=== PATIENT | female | born 1955 | race Caucasian/White ===

== ENCOUNTER 2019-04-05 11:58 | Outpatient (CLI) | payer MEDICARE, SELFPAY ==
--- NOTE | ~2019-04-05 | XR_ITS ---
EXAMINATION: XR chest 2V EXAM DATE: 04/05/2019 12:25 INDICATION: Shortness of breath. TECHNIQUE: Frontal and lateral projections of the chest obtained and reviewed. Comparison is made to prior examination from 09/30/2016. FINDINGS: The lungs are clear. There are no pleural effusions. The cardiomediastinal silhouette is within normal limits. There is no pneumothorax suspected. The bones and soft tissues are unremarkab le. IMPRESSION: No acute cardiopulmonary findings. Reviewed, dictated and finalized at location B. MOTIVE SERVICE CONSULTANT
== END 2019-04-05 11:59 | disposition home or self-care (01) ==
PROVIDERS: PCP Nurse Practitioner Family; Visit Provider Nurse Practitioner Family
DX: R30.0 Dysuria (principal); R06.02 Shortness of breath
CPT/HCPCS: 71046; 87077; 87086; 87088; 87186

== ENCOUNTER 2019-04-25 14:13 | Outpatient (CLI) | payer MEDICARE, SELFPAY | END 2019-04-25 14:14 | disposition home or self-care (01) | PROVIDERS: PCP Family Medicine | DX: N39.0 Urinary tract infection, site not specified (principal) | CPT/HCPCS: 87077; 87086; 87088; 87186 ==

== ENCOUNTER 2019-06-17 13:28 | Outpatient (CLI) | payer MEDICARE, SELFPAY ==
[2019-06-17 13:40] LABS: Hematocrit 44.1 % (35.0-49.0); Hemoglobin 14.4 g/dL (12.0-15.0); Mean Corpuscular HGB Conc 32.7 g/dL (32.0-36.0); Mean Corpuscular Hemoglobin 30.1 pg (27.0-31.0); Mean Corpuscular Volume 92.1 fL (78.0-102.0); Mean Platelet Volume 8.8 fl (9.2-11.8); Platelet Count Result 255 K/mm3 (150-420); Red Blood Count 4.79 M/mm3 (4.20-5.40); Red Cell Distribution Width 11.7 % (11.6-14.4); White Blood Count 7.8 K/mm3 (4.8-10.8)
[2019-06-17 14:20] LABS: Alanine Aminotransferase 32 U/L (14-59); Albumin Level 3.7 g/dL (3.4-5.0); Alkaline Phosphatase 78 U/L (46-116); Anion Gap 14.2 mmol/L (7-16); Aspartate Amino Transferase 27 U/L (15-37); Bilirubin,Total 0.4 mg/dL (0.00-1.00); Blood Urea Nitrogen 16 mg/dL (7-18); Calcium 8.7 mg/dL (8.5-10.1); Carbon Dioxide 28 mmol/L (21-32); Chloride 106 mmol/L (98-108); Estimated Glomerular Filt Rate > 60; Glucose 123 mg/dL (70-99); Osmolality Calculated 300 mOsm/kg (285-295); Potassium 4.2 mmol/L (3.5-5.1); Sodium 144 mmol/L (136-145); Total Protein 7.1 g/dL (6.4-8.2)
[2019-06-17 14:28] LABS: CRP < 0.2 mg/dL (0.0-0.9)
== END 2019-06-17 13:29 | disposition home or self-care (01) ==
PROVIDERS: PCP Family Medicine
DX: K50.919 Crohn's disease, unspecified, with unspecified complications (principal)
CPT/HCPCS: 36415; 80053; 85027; 86140

== ENCOUNTER 2019-07-06 12:45 | Outpatient (CLI) | payer MEDICARE, SELFPAY ==
[2019-07-06 12:56] LABS: Add Urine Microscopic? YES; Appearance Urine Clear (Clear); Bilirubin Urine Negative (Negative); Blood Urine Negative (Negative); Color Urine Orange (Yellow); Glucose Urine UA Trace (Negative); Ketones Urine Negative (Negative); Leukocyte Esterase Ur Trace (Negative); Nitrate Urine Positive (Negative); Protein Urine 1+ (Negative); Specific Grav Ur 1.025 (1.010-1.020); pH Urine 5.5 (5.0-8.0)
[2019-07-06 13:02] LABS: Bacteria Urine 2+ /hpf; RBC Urine 0-2 /hpf (0-2); Squamous Epithelial Cell Urine Moderate /hpf (Few)
== END 2019-07-06 12:46 | disposition home or self-care (01) ==
LOC: CHSLAB 12:47
PROVIDERS: PCP Family Medicine; Visit Provider Nurse Practitioner Family
DX: R35.0 Frequency of micturition (principal); R30.0 Dysuria
CPT/HCPCS: 81001; 87086; 87088; 87147; 87186

== ENCOUNTER 2019-09-08 12:52 | Outpatient (CLI) | payer MEDICARE, SELFPAY ==
--- NOTE | ~2019-09-08 | MM_ITS ---
EXAMINATION: MM screening kashif BI w ziyad HISTORY: Screening mammogram TECHNIQUE: Craniocaudal and mediolateral oblique 3-D tomosynthesis images were obtained and synthetic 2-D images were generated. CAD analysis was submitted and interpreted. COMPARISON: 06/28/2018, 03/13/2016, 12/07/2013 bilateral digital screening mammogram examinations BREAST PARENCHYMAL COMPOSITION: The breasts are almost entirely fatty.. FINDINGS: There is no evidence of suspicious mass, calcification, or architectural distortion to sugg est malignancy in either breast. There has been no suspicious interval change. IMPRESSION: 1. No mammographic evidence of malignancy. 2. Recommend routine screening mammography in one year. BI-RADS Category 1: Negative Reviewed, dictated and finalized at location A.
== END 2019-09-08 12:53 | disposition home or self-care (01) ==
LOC: CHSIMG 12:54
PROVIDERS: PCP Family Medicine; Visit Provider Family Medicine
DX: Z12.31 Encounter for screening mammogram for malignant neoplasm of breast (principal)
CPT/HCPCS: 77063; 77067

== ENCOUNTER 2019-10-31 14:39 | Outpatient (NON) | payer MEDICARE, SELFPAY ==
[2019-10-31 15:00] LABS: Add Urine Microscopic? YES; Appearance Urine Clear (Clear); Bilirubin Urine 1+ (Negative); Blood Urine Negative (Negative); Color Urine Orange (Yellow); Glucose Urine UA 1+ (Negative); Ketones Urine 1+ (Negative); Leukocyte Esterase Ur 1+ LEU/UL (Negative); Nitrate Urine Positive (Negative); Protein Urine 2+ (Negative); Urobilinogen Urine >=8.0 mg/dL (0.2-1.0)
[2019-10-31 15:07] LABS: Bacteria Urine Trace /hpf; RBC Urine 0-2 /hpf (0-2); Squamous Epithelial Cell Urine Few /hpf (Few); WBC Urine 31-50 /hpf (0-3)
== END 2019-10-31 14:40 ==
LOC: CHSLAB 14:40
PROVIDERS: Visit Provider Nurse Practitioner Family
DX: R35.0 Frequency of micturition (principal)
CPT/HCPCS: 81001; 87086; 87088

== ENCOUNTER 2020-02-27 12:22 | Outpatient (CLI) | payer MEDICARE, SELFPAY ==
--- NOTE | ~2020-02-27 | CT_ITS ---
EXAMINATION: CT abdomen pelvis wo con DATE: 02/27/2020 12:44 INDICATION: Chronic cystitis TECHNIQUE: Computed tomography (CT) of the abdomen and pelvis was performed without intravenous contr ast. Automated exposure control and iterative reconstruction technique were employed. The dose-length product was 1423.35 mGy-cm. COMPARISON: 05/21/2015 FINDINGS: Lung bases are clear. Heart size is normal. No pericardial or pleural effusion. Liver, gallbladder, s pleen, pancreas, bilateral adrenal glands and right kidney are normal. New 2.8 x 2.4 x 2.7 cm soft ti ssue density mass at the left renal hilum. Anastomotic suture line along the small bowel may right lo wer quadrant. No bowel obstruction. Appendix is normal. There are few surgical clips along the course of the right ureter. The right ureterovesicular junction appears to be retracted cephalad suggesting prior distal ureterectomy and reimplantation, possibly with psoas hitch procedure. The uterus and bi lateral adnexa are unremarkable. No free intraperitoneal gas or fluid. No pathologically enlarged abd ominal or pelvic lymphadenopathy.. There is calcified atherosclerosis of the aorta and many of the ot her arteries. Multiple chronic appearing compression fractures in the lumbar and lower thoracic spine . Mild to moderate degenerative skeletal changes in the spine and at both hips. IMPRESSION: 1. 2.8 cm soft tissue density mass at the left renal hilum new since 05/21/2015 could represent either malignancy or a proteinaceous/hemorrhagic cyst. Recommend pre and postcontrast MRI or CT for more de finitive determination. Line 2. Postoperative changes along the distal right ureter and cephalad retraction of the ureterovesicula r junction suggesting prior distal ureterectomy and reimplantation with possible psoas hitch procedur e. Correlate with urologic history. Reviewed, dictated and finalized at location A. K OF COURT IMPRESSION: 1. 2.8 cm soft tissue density mass at the left renal hilum new since 05/21/2015 could represent either malignancy or a proteinaceous/hemorrhagic cyst. Recommen d pre and postcontrast MRI or CT for more definitive determination. Line 2. Postoperative changes along the distal right ureter and cephalad retraction of the ureterovesicular junction suggesting prior distal ureterectomy and reimp lantation with possible psoas hitch procedure. Correlate with urologic history.
== END 2020-02-27 12:23 | disposition home or self-care (01) ==
PROVIDERS: PCP Family Medicine; Visit Provider Urology
DX: N30.20 Other chronic cystitis without hematuria (principal)
CPT/HCPCS: 74176

== ENCOUNTER → 2020-03-30 14:30 | Outpatient (CLI) | payer MEDICARE, SELFPAY ==
--- NOTE | ~2020-03-30 | MR_ITS ---
EXAMINATION: MR abdomen wo/w con INDICATION: Left kidney mass TECHNIQUE: Coronal SSFSE ARC, WATER:coronal LAVA-FLEX, Coronal 2D FIESTA FatSat, Axial SSFSE BH ARC, Axial 3D DualEcho BH, Axial SSFSE-IR, Axial DWI b=500, Axial 2D FIESTA FatSat, pre and dynamic postco ntrast Axial LAVA ARC, postcontrast Coronal In and Opposed phase LAVA FLEX COMPARISON: CT, 02/27/2020 CONTRAST: Multihance, 20 cc FINDINGS: There is a 3.0 cm mass with heterogeneous T1 and T2 signal intensity arising from the lower pole of the left kidney and encroaching on the left renal pelvis. The mass demonstrates heterogeneou s enhancement after contrast administration. The left renal vein is patent. There is a 10 mm simple c yst of the left kidney upper pole. Tiny cysts of the right kidney measure up to 3 mm. There are no pa thologically enlarged abdominal lymph nodes. The liver, spleen, pancreas, gallbladder, and adrenal gl ands are normal. There are no dilated loops of bowel. Multiple chronic compression fractures are note d in the lower thoracic and lumbar spine. IMPRESSION: 1. Mass of the left kidney lower pole encroaching on the left renal pelvis, consistent with renal ligia l carcinoma. Reviewed, dictated and finalized at location A. ADMINISTRATOR IMPRESSION: 1. Mass of the left kidney lower pole encroaching on the left renal pelvis, con sistent with renal cell carcinoma.
[2020-03-30 15:01] LABS: Estimated Glomerular Filt Rate > 60
== END ==
PROVIDERS: PCP Family Medicine; Visit Provider Urology
DX: N28.89 Other specified disorders of kidney and ureter (principal)
CPT/HCPCS: 74183; A9577

== ENCOUNTER → 2020-05-25 11:56 | Outpatient (CLI) | payer MEDICARE, SELFPAY ==
--- NOTE | ~2020-05-25 | MR_ITS ---
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 Urinary tract infections. TECHNIQUE: Magnetic resonance imaging (MRI) of the pelvis was performed without and with 20 mL MultiH ance intravenous contrast. Sequences included coronal and axial T2-weighted FS FSE, axial T1-weighted FS FSE, axial LAVA, coronal FS FIESTA, coronal LAVA-flex, axial T2-weighted FSE, axial dual-echo T1- weighted FSPGR, axial FS FIESTA, axial DWI, and small [id number] sagittal, coronal, and axial T2-w eighted FSE. Postcontrast sequences included coronal LAVA-flex and a time course of axial LAVA. COMPARISON: CT abdomen and pelvis 02/27/2020, 05/21/15, abdomen MRI 03/30/2020 FINDINGS: Partially visualized is a 3.2 cm mass in the left renal pelvis that was enhancing on the prior MRI. T here are no dilated loops of bowel. The appendix is normal. There is a diverticulum of the right supe rior aspect of the bladder, which may be the site of a reimplanted ureter. There is no colovesical fi stula. There are no pathologically enlarged lymph nodes. There is no free intraperitoneal fluid. IMPRESSION: 1. No colovesical fistula. 2. Diverticulum of the right superior aspect of the bladder, which may be the site of a reimplanted u reter. 3. Left kidney mass again seen, consistent with renal cell carcinoma. Reviewed, dictated and finalized at location A. IMPRESSION: 1. No colovesical fistula. 2. Diverticulum of the right superior aspect of the bladder, which may be the s ite of a reimplanted ureter. 3. Left kidney mass again seen, consistent with renal cell carcinoma.
[2020-05-25 12:49] LABS: Estimated Glomerular Filt Rate > 60
== END ==
DX: K50.113 Crohn's disease of large intestine with fistula (principal); N32.3 Diverticulum of bladder
CPT/HCPCS: 72197; A9577

== ENCOUNTER 2020-06-19 11:59 | Outpatient (CLI) | payer MEDICARE, SELFPAY | END 2020-06-19 12:00 | disposition home or self-care (01) | LOC: CHSLAB 12:03 | PROVIDERS: PCP Family Medicine | DX: N39.0 Urinary tract infection, site not specified (principal) | CPT/HCPCS: 87077; 87086; 87088; 87186 ==

== ENCOUNTER 2020-07-05 15:03 | Outpatient (CLI) | payer MEDICARE, SELFPAY | END 2020-07-05 15:04 | disposition home or self-care (01) | LOC: CHSLAB 15:06 | PROVIDERS: PCP Family Medicine | DX: N39.0 Urinary tract infection, site not specified (principal) | CPT/HCPCS: 87077; 87086; 87088; 87186 ==

== ENCOUNTER 2022-01-16 13:15 | Outpatient (CLI) | payer MEDICARE, SELFPAY ==
[2022-01-16 13:29] LABS: Hemoglobin 12.5 g/dL (12.0-15.0); Mean Corpuscular HGB Conc 32.1 g/dL (32.0-36.0); Mean Corpuscular Hemoglobin 30.7 pg (27.0-31.0); Mean Corpuscular Volume 95.8 fL (78.0-102.0); Mean Platelet Volume 8.9 fl (9.2-11.8); Platelet Count Result 234 K/mm3 (150-420); Red Blood Count 4.07 M/mm3 (4.20-5.40); Red Cell Distribution Width 11.9 % (11.6-14.4); White Blood Count 6.3 K/mm3 (4.8-10.8)
[2022-01-16 13:31] LABS: Appearance Urine Clear (Clear); Bilirubin Urine 1+ (Negative); Blood Urine Negative (Negative); Glucose Urine UA Trace (Negative); Ketones Urine Trace (Negative); Leukocyte Esterase Ur 2+ (Negative); Nitrate Urine Positive (Negative); Protein Urine 2+ (Negative)
[2022-01-16 13:36] LABS: Add Urine Microscopic? YES; Bacteria Urine Trace /hpf; Color Urine Dark Orange (Yellow); RBC Urine None seen /hpf (0-2); Squamous Epithelial Cell Urine Few /hpf (Few)
[2022-01-16 13:42] LABS: Creatinine Urine 162.45 mg/dL (40-278); MALB Creatinine Ratio 13.9 mg/g (0-30); Microalbumin Urine Random 22.6 mg/L
[2022-01-16 13:57] LABS: Alanine Aminotransferase 23 U/L (14-59); Albumin Level 3.8 g/dL (3.4-5.0); Alkaline Phosphatase 57 U/L (46-116); Anion Gap 10 mmol/L (8-16); Aspartate Amino Transferase 17 U/L (15-37); Bilirubin,Total 0.5 mg/dL (0.00-1.00); Blood Urea Nitrogen 25 mg/dL (7-18); Carbon Dioxide 24 mmol/L (21-32); Chloride 106 mmol/L (98-108); Estimated Glomerular Filt Rate 32; Glucose 113 mg/dL (70-99); NT Pro B Type Natriuretic Pept 382 pg/mL (0-125); Osmolality Calculated 295 mOsm/kg (285-295); Potassium 5.5 mmol/L (3.5-5.1); Sodium 140 mmol/L (136-145); Total Protein 7.2 g/dL (6.4-8.2)
== END 2022-01-16 13:16 | disposition home or self-care (01) ==
LOC: CHSLAB 13:16
PROVIDERS: PCP Family Medicine; Visit Provider Family Medicine
DX: R30.0 Dysuria (principal); E11.9 Type 2 diabetes mellitus without complications; I10 Essential (primary) hypertension; R06.09 Other forms of dyspnea
CPT/HCPCS: 36415; 80053; 81001; 82043; 83880; 85027

== ENCOUNTER 2022-01-24 14:31 | Outpatient (CLI) | payer MEDICARE, SELFPAY ==
--- NOTE | 2022-01-24 14:35 | ECHO_ITS ---
Patient Info Name: Za De Los Santos Age: 66 years : 1955 Gender: Female Ht: 63 in Wt: 280 lbs BSA: 2.46 m2 HR: 78 bpm BP: 158 / 68 mmHg Heart Rhythm: Sinus Rhythm Technical Quality: Fair Exam Date: 01/24/2022 3:23 PM Exam Location: [facility] Patient Status: Outpatient Admit Date: 01/24/2022 Staff Ordering Physician: Benny Lopez DO Sheet Metal Duct Worker Supervisor: Priyanka Theodore RDCS Attending Provider: Benny Lopze DO Referring Physician: Jessica COOL; Exam Type: CA echo doppler color flow Study Info Indications I27.0 - Primary pulmonary hypertension Complete two-dimensional, color flow and Doppler transthoracic echocardiogram is performed. Summary 1. Complete two-dimensional, color flow and Doppler transthoracic echocardiogram is performed. 2. Left ventricular chamber dimension is normal. 3. Left ventricular systolic function is normal, estimated at 60-65%. 4. The left ventricular diastolic function is grade I diastolic dysfunction. 5. E/e' 9 is minimally elevated. 6. No pulmonary hypertension, estimated pulmonary arterial systolic pressure is 30 mmHg. Left Ventricle E/e' 9 is minimally elevated. Left ventricular chamber dimension is normal. Left ventricular systolic function is normal, estimated at 60-65%. The left ventricular diastolic function is grade I diastolic dysfunction. Right Ventricle Right ventricular systolic function is normal and with normal TAPSE 2.4 cm. Right ventricular chamber dimension is normal. Left Atria Left atrial chamber dimension is normal. Right Atria Right atrial chamber dimension is normal. Aortic Valve The aortic valve is trileaflet. There is no aortic valve stenosis. There is no aortic valve regurgitation. Pulmonic Valve There is no pulmonic regurgitation. Mitral Valve There is no mitral valve regurgitation. Tricuspid Valve There is no tricuspid valve regurgitation. No pulmonary hypertension, estimated pulmonary arterial systolic pressure is 30 mmHg. Pericardium/Pleural There is no pericardial effusion. Inferior Vena Cava Normal inferior vena cava with >50% collapse upon inspiration consistent with normal right atrial pressure, 5 mmHg. Aorta The aortic root size at the sinus of Valsalva is normal. Left Ventricular Outflow Tract Name Value Normal LVOT 2D LVOT Diameter 2.0 cm LVOT Doppler LVOT Peak Velocity 137 cm/s LVOT Peak Gradient 8 mmHg LVOT Mean Gradient 4 mmHg LVOT VTI 27 cm LVOT VTI/AV VTI Ratio 0.8 LVOT Stroke Volume 83 ml Pulmonic Valve Name Value Normal RVOT Doppler RVOT Peak Gradient 2 mmHg PV Doppler
== END 2022-01-24 14:32 | disposition home or self-care (01) ==
LOC: CHSIMG 14:32
PROVIDERS: PCP Family Medicine; Visit Provider Family Medicine
DX: I11.0 Hypertensive heart disease with heart failure (principal); I50.30 Unspecified diastolic (congestive) heart failure
CPT/HCPCS: 93306

== ENCOUNTER 2022-03-18 14:18 | Outpatient (CLI) | payer MEDICARE, SELFPAY ==
[2022-03-18 14:43] LABS: Basophils Absolute Auto 0.07 K/mm3 (0.00-0.10); Eosinophils Absolute Auto 0.33 K/mm3 (0.02-0.50); Eosinophils Percent Auto 4.9 % (1.0-6.0); Hematocrit 41.9 % (35.0-49.0); Immature Granulocyte Absolute 0.01 K/mm3 (0.00-0.00); Immature Granulocyte Percent A 0.1 % (0.0-0.0); Lymphocytes Absolute Auto 2.49 K/mm3 (1.10-4.50); Lymphocytes Percent Auto 36.8 % (18.0-42.0); Mean Corpuscular HGB Conc 33.4 g/dL (32.0-36.0); Mean Corpuscular Volume 92.7 fL (78.0-102.0); Mean Platelet Volume 8.9 fl (9.2-11.8); Monocytes Percent Auto 8.9 % (2.0-11.0); Neutrophils Absolute Auto 3.3 K/mm3 (1.7-7.2); Neutrophils Percent Auto 48.3 % (50.0-70.0); Platelet Count Result 240 K/mm3 (150-420); Red Blood Count 4.52 M/mm3 (4.20-5.40); Red Cell Distribution Width 11.6 % (11.6-14.4); White Blood Count 6.8 K/mm3 (4.8-10.8)
[2022-03-18 14:47] LABS: Appearance Urine Clear (Clear); Bilirubin Urine Negative (Negative); Color Urine Light Yellow (Yellow); Glucose Urine UA Negative (Negative); Ketones Urine Negative (Negative); Leukocyte Esterase Ur 1+ LEU/UL (Negative); Nitrate Urine Negative (Negative); Protein Urine Negative (Negative); Urobilinogen Urine 0.2 mg/dL (0.2-1.0)
[2022-03-18 14:49] LABS: Add Urine Microscopic? YES; Blood Urine Trace-lysed (Negative); RBC Urine 0-2 /hpf (0-2); Squamous Epithelial Cell Urine Few /hpf (Few)
[2022-03-18 14:50] LABS: Bacteria Urine 1+ /hpf
[2022-03-18 14:52] LABS: Creatinine Urine 74.29 mg/dL (40-278); Total Protein Urine Random 17.4 mg/dL (0.0-11.9); Ur Ttl Prot Creatinine Ratio 0.23 mg/mg (0-0.20)
[2022-03-18 15:33] LABS: Albumin Level 3.7 g/dL (3.4-5.0); Anion Gap 5 mmol/L (8-16); Blood Urea Nitrogen 16 mg/dL (7-18); Calcium 8.9 mg/dL (8.5-10.1); Carbon Dioxide 30 mmol/L (21-32); Chloride 106 mmol/L (98-108); Estimated Glomerular Filt Rate 48; Ferritin 90 ng/mL (8-252); Glucose 120 mg/dL (70-99); Iron 100 ug/dL (50-170); Osmolality Calculated 294 mOsm/kg (285-295); Percent Iron Saturation 26 % (12-57); Phosphorus 3.2 mg/dL (2.6-4.7); Potassium 4.5 mmol/L (3.5-5.1); Sodium 141 mmol/L (136-145)
[2022-03-22 21:39] LABS: Parathyroid Intact 96 pg/mL (14-64)
[2022-03-24 01:06] LABS: Vitamin D 25 Hydroxy 42 ng/mL (30-100)
== END 2022-03-18 14:19 | disposition home or self-care (01) ==
LOC: CHSLAB 14:24
PROVIDERS: PCP Family Medicine
DX: N18.32 Chronic kidney disease, stage 3b (principal); C64.2 Malignant neoplasm of left kidney, except renal pelvis; D63.1 Anemia in chronic kidney disease; N25.0 Renal osteodystrophy; I10 Essential (primary) hypertension; R82.90 Unspecified abnormal findings in urine
CPT/HCPCS: 36415; 80069; 81001; 82306; 82570; 82728; 83540; 83550; 83970; 84156; 85025; 87077; 87086; 87088; 87186

== ENCOUNTER 2022-05-29 15:19 | Outpatient (CLI) | payer MEDICARE, SELFPAY ==
[2022-05-29 15:34] LABS: Appearance Urine Clear (Clear); Bilirubin Urine Negative (Negative); Blood Urine Negative (Negative); Glucose Urine UA Trace (Negative); Ketones Urine Negative (Negative); Leukocyte Esterase Ur 1+ LEU/UL (Negative); Nitrate Urine Positive (Negative); Protein Urine Trace (Negative); Specific Grav Ur 1.025 (1.010-1.020)
[2022-05-29 15:56] LABS: Add Urine Microscopic? YES; Color Urine Dark Orange (Yellow); Squamous Epithelial Cell Urine Moderate /hpf (Few); WBC Urine 21-30 /hpf (0-3)
[2022-05-29 15:57] LABS: Bacteria Urine 4+ /hpf
== END 2022-05-29 15:20 | disposition home or self-care (01) ==
PROVIDERS: PCP Family Medicine; Visit Provider Family Medicine
DX: R30.0 Dysuria (principal); R82.90 Unspecified abnormal findings in urine
CPT/HCPCS: 81001; 87077; 87086; 87088; 87186

== ENCOUNTER 2022-07-15 15:11 | Outpatient (CLI) | payer MEDICARE, SELFPAY ==
[2022-07-15 15:24] LABS: Bilirubin Urine Negative (Negative); Blood Urine Negative (Negative); Glucose Urine UA Trace (Negative); Ketones Urine Negative (Negative); Leukocyte Esterase Ur 2+ LEU/UL (Negative); Nitrate Urine Positive (Negative); Protein Urine 1+ (Negative)
[2022-07-15 15:33] LABS: Color Urine Dark Orange (Yellow)
[2022-07-15 15:37] LABS: Add Urine Microscopic? YES; Appearance Urine Slightly Cloudy (Clear); Bacteria Urine 1+ /hpf; RBC Urine None seen /hpf (0-2); Squamous Epithelial Cell Urine Few /hpf (Few); WBC Urine 51-75 /hpf (0-3)
== END 2022-07-15 15:12 | disposition home or self-care (01) ==
LOC: CHSLAB 15:13
PROVIDERS: PCP Family Medicine; Visit Provider Family Medicine
DX: R39.9 Unspecified symptoms and signs involving the genitourinary system (principal); R82.90 Unspecified abnormal findings in urine
CPT/HCPCS: 81001; 87086; 87088

== ENCOUNTER 2022-07-31 12:36 | Outpatient (CLI) | payer MEDICARE, SELFPAY ==
--- NOTE | ~2022-07-31 | XR_ITS ---
Clinical Indication: Dyspnea PA and lateral views of the chest: Comparison: 04/05/2019 Findings: The lungs are clear, without evidence of focal consolidation or pleural effusion. Cardiome diastinal silhouette is within normal limits. Mild compression deformities of T12 and L1 are similar to prior exam. Impression: Clear lungs. Stable compression deformities, as above. Reviewed, dictated and finalized at location . Impression: Clear lungs. Stable compression deformities, as above.
--- NOTE | ~2022-07-31 | MM_ITS ---
EXAMINATION: MM screening kashif BI w ziyad HISTORY: Screening mammogram TECHNIQUE: Craniocaudal and mediolateral oblique 3-D tomosynthesis images were obtained and synthetic 2-D images were generated. CAD analysis was submitted and interpreted. COMPARISON: 09/08/2019, 06/28/2018, 03/13/2016 bilateral screening mammogram examinations BREAST PARENCHYMAL COMPOSITION: The breasts are almost entirely fatty. FINDINGS: There is no evidence of suspicious mass, calcification, or architectural distortion to sugg est malignancy in either breast. There has been no suspicious interval change. IMPRESSION: 1. No mammographic evidence of malignancy. 2. Recommend routine screening mammography in one year. BI-RADS Category 1: Negative Reviewed, dictated and finalized at location A.
== END 2022-07-31 12:37 | disposition home or self-care (01) ==
LOC: CHSIMG 12:37
PROVIDERS: PCP Family Medicine; Visit Provider Family Medicine
DX: Z12.31 Encounter for screening mammogram for malignant neoplasm of breast (principal); R06.00 Dyspnea, unspecified
CPT/HCPCS: 71046; 77063; 77067

== ENCOUNTER 2022-08-06 10:11 | Outpatient (NON) | payer MEDICARE, SELFPAY ==
[2022-08-06 10:21] LABS: Appearance Urine Slightly Cloudy (Clear); Bilirubin Urine Negative (Negative); Blood Urine Trace-Intact (Negative); Color Urine Light Yellow (Yellow); Glucose Urine UA Negative (Negative); Ketones Urine Negative (Negative); Leukocyte Esterase Ur 3+ LEU/UL (Negative); Nitrate Urine Positive (Negative); Protein Urine Negative (Negative); Specific Grav Ur 1.015 (1.010-1.020); Urobilinogen Urine 0.2 mg/dL (0.2-1.0); pH Urine 6.5 (5.0-8.0)
[2022-08-06 10:28] LABS: Add Urine Microscopic? YES; Bacteria Urine 2+ /hpf; RBC Urine 0-2 /hpf (0-2); Squamous Epithelial Cell Urine Occasional /hpf (Few); WBC Urine 31-50 /hpf (0-3)
== END 2022-08-06 10:12 | disposition home or self-care (01) ==
LOC: CHSLAB 10:12
PROVIDERS: Visit Provider Family Medicine
DX: R39.9 Unspecified symptoms and signs involving the genitourinary system (principal); R82.90 Unspecified abnormal findings in urine
CPT/HCPCS: 81001; 87077; 87086; 87088; 87186

== ENCOUNTER 2023-01-16 12:28 | Outpatient (CLI) | payer MEDICARE, SELFPAY ==
--- NOTE | ~2023-01-16 | CT_ITS ---
EXAMINATION: CT abdomen pelvis wo con DATE: 01/16/2023 12:51 INDICATION: Renal cell carcinoma, unspecified laterality. TECHNIQUE: Computed tomography (CT) of the abdomen and pelvis was performed without intravenous contr ast. Automated exposure control and iterative reconstruction technique were employed. The dose-length product was 1426.31 mGy-cm. COMPARISON: CT abdomen and pelvis 02/27/2020 FINDINGS: The visualized portions of the lung bases demonstrate mild atelectasis. No pleural effusion . The heart size is normal. No pericardial effusion. There is diffuse hepatic steatosis. The gallblad [place], spleen, pancreas, adrenal glands, and right kidney are normal. Left kidney is absent. There is c alcified atherosclerosis of the aorta and many of the other arteries. There is an anastomosis in the rectosigmoid. There are no dilated loops of bowel. The appendix is normal. There are no pathologicall y enlarged lymph nodes. There is no free intraperitoneal fluid. There are chronic fractures of most v ertebral bodies. There is mild thoracic and lumbar spondylosis. IMPRESSION: 1. No evidence of metastatic disease. Reviewed, dictated and finalized at location E. TOR SERVICES ASSOCIATE
== END 2023-01-16 12:29 | disposition home or self-care (01) ==
LOC: CHSIMG 12:30
PROVIDERS: PCP Family Medicine
DX: C64.9 Malignant neoplasm of unspecified kidney, except renal pelvis (principal)
CPT/HCPCS: 74176

== ENCOUNTER 2023-02-26 12:21 | Outpatient (CLI) | payer MEDICARE, SELFPAY ==
--- NOTE | ~2023-02-26 | DEXA_ITS ---
Bone Density Report Name: BLANCO NICOLE Age: 67 Sex: Female Ethnicity: White Date of : 1955 Indication: postmenopausal; screening for osteoporosis; height loss; inflammatory bowel disease; Referring Provider: Benny Lopez Study: Bone densitometry was performed. Exam Date: February 26, 2023 Accession number: [id number] Bone Density: Region BMD T-score Z-score Classification AP Spine(L1, L2, L3) 0.961 -0.5 1.3 Normal Femoral Neck (Left) 0.838 -0.1 1.4 Normal Total Hip (Left) 0.979 0.3 1.6 Normal Femoral Neck (Right) 0.707 -1.3 0.3 Osteopenia Total Hip (Right) 0.844 -0.8 0.5 Normal Femoral Neck Mean 0.773 -0.7 0.9 Normal Total Hip Mean 0.912 -0.2 1.0 Normal World Health Organization criteria for BMD impression classify patients as: Normal (T-score at or above -1.0), Osteopenia (T-score between -1.0 and -2.5), or Osteoporosis (T-score at or below -2.5). 10-year Fracture Risk(1): Major Osteoporotic Fracture 6.8% Hip Fracture 0.6% Reported Risk Factors: [place] (), Neck BMD=0.707, BMI=52.1 Input outside FRAX(R) limits. Adjusted to:Pwrogj=757 kg (1) FRAX(R) Version 3.08. Fracture probability calculated for an untreated patient. Fracture probability may be lower if the patient has received treatment. Clinical Information Provided by Patient: Has used the following medications: Vitamin D Has the following medical conditions: Inflammatory bowel diseases Patient maximum height was 66 Menopause Age: 51 No regular weight bearing exercise Drinks caffeinated beverages Onset of menses at age 16 Number of children 2 Impression: The patient has low bone mass, based on the Right Femoral Neck T-score. Discussion: BONE DENSITY IS LOW AT ONE OR MORE SKELETAL SITES. This patient's lowest T-score is low at one or more skeletal sites. It meets the World Health Organization's (WHO) criteria for ?low bone mass? (T-score between -1.0 and -2.5). The patient's 10-year risk of fracture as calculated by FRAX is less than the threshold where pharmacological therapy is recommended by the National Osteoporosis Foundation (NOF). However, all treatment decisions require clinical judgment and consideration of individual patient factors, including patient preferences, comorbidities, previous drug use, risk factors not captured in the FRAX model (e.g., frailty, falls, vitamin D deficiency, increased bone turnover, interval significant decline in bone density) and possible under or overestimation of fracture risk by FRAX. The patient should follow a healthful lifestyle (good nutrition with adequate calcium and vitamin D, and appropriate weight-bearing exercise). Follow-Up: Consider repeating this study in 2 to 3 years to reassess this patient's status, or sooner if there is some new clinical indication. Reported by: Dr. Michele Lieberman on 02/26/2023 1:06:00 PM.
[2023-02-26 13:23] LABS: Hemoglobin A1C 5.9 % (<5.7)
[2023-02-26 13:50] LABS: Cholesterol 201 mg/dL (0-200); HDL Direct 57 mg/dL (40-60); LDL Cholesterol Calculated 119 mg/dL (<130); Triglycerides 124 mg/dL (0-150)
== END 2023-02-26 12:22 | disposition home or self-care (01) ==
PROVIDERS: PCP Nurse Practitioner Family; Visit Provider Family Medicine
DX: R73.09 Other abnormal glucose (principal); Z78.0 Asymptomatic menopausal state; Z13.6 Encounter for screening for cardiovascular disorders; M85.88 Other specified disorders of bone density and structure, other site
CPT/HCPCS: 36415; 77080; 80061; 83036

== ENCOUNTER 2023-04-16 08:31 | Outpatient (CLI) | payer MEDICARE, SELFPAY ==
--- NOTE | ~2023-04-16 | MM_ITS ---
EXAMINATION: MM diagnostic kashif LT w ziyad HISTORY: Left breast lump and area of recent trauma/hematoma. TECHNIQUE: ML, MLO and CC 3-D tomosynthesis images of the left breast were performed and synthetic 2- D images were generated. CAD analysis was submitted and interpreted. COMPARISON: 07/31/2022 bilateral screening mammogram BREAST PARENCHYMAL COMPOSITION: The left breast is almost entirely fatty. FINDINGS: Approximately 8 x 15 mm asymmetric irregular density is noted in the upper outer left breas t at the area of previous trauma. The patient reports that this area has been improving. This opacity is entirely new since 07/31/2022. No suspicious mass, architectural distortion, malignant calcification, skin thickening or retraction or significant new or developing density of the breast is noted otherwise. IMPRESSION: 1. Probable resolving small hematoma in the upper outer left breast 2. Six-month diagnostic left mammogram follow-up is recommended BI-RADS category 3, probably benign findings. Reviewed, dictated and finalized at location A. 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
== END 2023-04-16 08:32 | disposition home or self-care (01) ==
LOC: CHSIMG 08:33
PROVIDERS: PCP Family Medicine; Visit Provider Nurse Practitioner Family
DX: N63.21 Unspecified lump in the left breast, upper outer quadrant (principal)
CPT/HCPCS: 77061; 77065; G0279

== ENCOUNTER 2024-04-25 13:01 | Outpatient (CLI) | payer MEDICARE, SELFPAY ==
--- OUTSIDE RECORDS SUMMARY | 2024-04-25 15:27 | XMS_ITS | Referral Summary ---
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 5th [place] [phone] Crohn's disease of large intestine without complication (HCC) (Primary Dx) 04/05/2024 2:59 PM COMBINER OPERATOR - 04/05/2024 11:59 PM COMBINER OPERATOR Hospital Encounter [address] [address] Stage 3b chronic kidney disease (HCC) Discharge Disposition: Discharge to home or self care 04/05/2024 1:00 PM COMBINER OPERATOR Office Visit [facility] Nephrology [address] 5th [place] [address] [place] [address] Stage 3b chronic kidney disease (HCC) (Primary Dx) 03/15/2024 Orders Only [facility] ([facility] - [facility] Urology [address] 11th [place] [address] [place] [id number] Kristi Magana NP 02/22/2024 1:00 PM COMBINER OPERATOR Lab [facility] Endocrinology Metabolism and Lipid [address] 5[address] [place] [address] [place] [phone] Stage 3b chronic kidney disease (CKD) (HCC) [N18.32] (Primary Dx); Anemia in stage 3b chronic kidney disease (HCC) [N18.32, D63.1]; Renal osteodystrophy [N25.0]; Primary hypertension [I10]; Secondary hyperparathyroidism of renal origin (HCC) [N25.81]; Vitamin D deficiency [E55.9]; Crohn's disease of large intestine without complication (CMS/HCC) (HCC) [K50.10] 02/22/2024 10:00 AM COMBINER OPERATOR Infusion [facility] Infusion Therapy [address] 5[address] [place] [address] [place] [phone] Crohn's disease of large intestine without complication (HCC) (Primary Dx); Stage 3b chronic kidney disease (HCC); Anemia in stage 3b chronic kidney disease (HCC); Renal osteodystrophy; Primary hypertension; Secondary hyperparathyroidism of renal origin; Vitamin D deficiency from Last 3 Months Allergies Active Allergy Reactions Criticality Noted Date Comments Nickel Rash Medium Medications cholecalciferol (VITAMIN D-3) 2,000 unit capsuleIndicati ons:Vitamin D Deficiency Take 1 capsule (2,000 Units total) by mouth vegetable farmworker before breakfast Active docusate sodium (COLACE) 100 mg capsuleIndicati ons:constipatio n Take 1 capsule (100 mg total) by mouth every morning Active esomeprazole DR (NexIUM) 40 mg capsuleIndicati ons:Stress Ulcer Prophylaxis Take 20 mg by mouth vegetable farmworker before breakfast. Active HYDROcodone-yolanda taminophen (NORCO) 10-325 mg per tabletIndicatio ns:Pain Take 1 tablet by mouth every 4 (four) hours as needed for pain. 30 tablet 8 Active SOLU-MEDROL, PF, 40 mg/mL recon solnIndications :crohns Infuse 1 mL (40 mg total) into a venous catheter With the remicade 11 8 Active diphenhydrAMINE (BENADRYL) 50 mg/mL injectionIndica tions:PRE MED 30 MINUTES PRIOR TO REMICADE Infuse 0.5 mL (25 mg total) into a venous catheter Active aspirin 81 mg enteric coated tabletIndicatio ns:prevention of thrombosis Take 1 tablet (81 mg total) by mouth every morning Active fluticasone propionate (FLONASE) 50 mcg/actuation nasal sprayIndication s:Allergic Rhinitis Administer 2 sprays into each nostril every morning 1 Active acetaminophen (TYLENOL) 325 mg tablet Take 2 tablets (650 mg total) by mouth as needed for pain or headaches Active inFLIXimab (REMICADE) 100 mg injectionIndica tions:Crohn's Disease Infuse 10 mL (100 mg total) into a venous catheter every 6 (six) weeks Last dose 05/17/20 Active rOPINIRole (REQUIP) 0.25 mg tablet 3 (three) times a day 3 Active albuterol HFA (PROVENTIL HFA,VENTOLIN HFA,PROAIR HFA) 90 mcg/actuation inhaler prn 3 Active carvediloL (COREG) 12.5 mg tablet Take 1 tablet (12.5 mg total) by mouth 2 (two) times a day with meals Active cephalexin (KEFLEX) 500 mg capsuleIndicati ons:Urinary Tract/Genitouri nary Infection Take 1 capsule (500 mg total) by mouth nightly 90 capsule 3 4 Active losartan (COZAAR) 50 mg tablet 5 Active semaglutide (OZEMPIC) 0.25 mg or 0.5 mg (2 mg/3 mL) pen injector injectionIndica tions:Weight Loss Management for Obese Patient (BMI >= 30) Inject 0.5 mg under the skin once a week Active montelukast (SINGULAIR) 4 mg chewable tabletIndicatio ns:Seasonal Allergic Rhinitis Take 1 tablet (4 mg total) by mouth nightly Active loratadine (CLARITIN) 10 mg tabletIndicatio ns:Allergic Rhinitis Take 1 tablet (10 mg total) by mouth every morning 04/05/19 25 Discontin ued(Patie nt Reported) furosemide (LASIX) 20 mg tablet 2 04/05/19 25 Discontin ued(Patie nt Reported) carvediloL (COREG) 12.5 mg tablet Take 1 tablet (12.5 mg total) by mouth 2 (two) times a day with meals 60 tablet 11 3 04/05/19 25 Discontin ued(Dupli everardo order) sulfamethoxazol e-trimethoprim (BACTRIM) 400-80 mg per tablet Take 1 tablet by mouth daily 90 tablet 3 4 04/05/19 25 Discontin ued(Patie nt Reported) Active Problems Problem Noted Date Diagnosed Date Weight gain 05/19/2021 Assessment & Plan (05/19/2021 12:26 PM CDT): Unfortunately the patient has gained approximately 100 lb over the last 5 years. A portion of this had been regaining weight she had lost while ill. Happily she has been able to avoid gaining further weight but now has a BMI of almost 50 and increasing trouble with back and joint pain. We would like to check a hemoglobin A1c with her next safety labs. She believes her thyroid has already been checked. She would likely benefit from following a schedule diet plan. 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 He should also have this skill to make lower calorie food appealing to her. She might find a lower carb or intermittent fasting diet tolerable but she needs to drink plenty of fluids given her single kidney. Renal cell carcinoma of left kidney 05/02/2020 Overview (05/02/2020): Added automatically from request for surgery [id number] History of elevated antinuclear antibody (JENNA) 0 04/06/2018 Crohn's disease of large int estine without complication ([facility]/HCC) 07/28/2017 Overview (12/10/2021): Year of Diagnosis: 2013 Year Symptoms Began: 2013 Phenotype & Distribution: Stricturing fistulizing disease impacting the rectum and sigmoid Previously Failed Treatments: Lialda, Imuran (with high a 6 TG on weight based dose), Canasa, prednisone Current Treatment: Remicade 7.5 milligrams/kilogram every 6 weeks Therapeutic Drug Monitoring IFX:20 mcg/ml 11/2020 IFX 22 Complications: High-grade obstructions secondary to sigmoid stricture, history of anemia and weight loss associated with flare Surgeries (Date, type): December 10, 2016: Sigmoid resection, small-bowel resection due to fistula and dense adhesions, drainage of pelvic abscess. Complicated by ureteral injury Endoscopies: Endoscopies: 05/03/2020 colonoscopy: Simple Endoscopic Score for Crohn's Disease: 0 mucosal inflammatory changes secondary to Crohn's disease, in remission. Patent functional end-to-end colo-colonic anastomosis, characterized by healthy appearing mucosa Pathology: No histopathological abnormalities in the terminal ileum or random biopsies of the colon 03/20/2017 colonoscopy: Poor prep but otherwise normal-appearing colon and ileum with polyp in ascending found to be a tubular adenoma. Only mild architectural disarray in the rectum Imaging: CT 08/2021 IMPRESSION: Changes of left nephrectomy without evidence of local recurrence or metastatic disease in the abdomen. Assessment & Plan (05/19/2021 12:22 PM CDT): Overall the patient continues to do well on her current drug regimen. She is frustrated by the 6 week interval and had a fairly robust drug level of 20 in November. We would like to repeat a surveillance colonoscopy and recheck her infliximab level with her next infusion. If she remains in both remission and her drug level is greater than 15, this interval could likely be extended to at least 7 weeks. Plan 1. Check infliximab level with next infusion 2. Repeat colonoscopy for surveillance 3. If infliximab level robust and colonoscopy consistent with remission consider extending infliximab interval to it least 7 weeks Assessment & Plan (11/29/2019 12:03 PM CDT): Stricturing fistulizing Crohn's disease on Remicade 7.5mg/kg every 6 weeks. Recent symptoms concerning for possible rectovaginal fistula. Having 2 stools daily. Occasional constipation -continue remicade -continue to monitor safety labs -check repeat remicade level -due for colonoscopy will schedule -with recent symptoms check MRI with fistula protocol as well. -will plan on flu vaccination today -with skin findings some concern for psoriasis will refer to dermatology for an opinion Assessment & Plan (11/02/2018 2:48 PM CDT): Dx 2013. Stricturing fisulizing crohn's. S/p colonic and small bowel resection in 2017. On remicade 7.5mg/kg every 6 weeks. Recent infusion delayed by 2 weeks due to UTI. Next infusion scheduled Nov 09. 2 stools daily. Denies abdominal pain or hematochezia. -plan to continue remicade at current dose and interval -could consider dose adjustment based on level -check remicade level at this time, also check B12, D and T spot -she had prevnar 07/2016, pneumovax 02/2015, has completed Hep B series as well -plan to repeat colonoscopy in 6 months Assessment & Plan (07/29/2017 4:28 PM CDT): 1. As the patient's Remicade levels were low prior to her dose adjustment and she has only received 1 dose at the higher concentration and frequency, she is at risk having a Crohn's flare with such an extensive delay in her Remicade for surgery. If she develops flare symptoms, we will offer her Uceris as this should not impact her wound healing 2. We would like her to restart her Remicade as soon as possible after cleared by surgery. We discussed the possibility of Re-inducing if the delay is longer than 4 months High risk medications (not anticoagulants) long- term use 07/28/2017 Assessment & Plan (05/19/2021 12:23 PM CDT): The patient is advised that she is eligible for Shingrix and a 2nd booster of the COVID vaccine. She is also eligible for a booster of Pneumovax which we will offer today. Assessment & Plan (11/29/2019 11:31 AM CDT): High risk medications: As with all patients taking immunosuppressive biologic therapies or immunomodulators, we provide a balanced discussion on benefits and risks associated with these medications. Regarding potential risks, we employ a strategy of active monitoring for medication related toxicities. Toxicities and risks discussed in monitoring include, but are not limited to the following: infusion reactions including anaphylaxis; bacterial, viral and fungal infections; pancreatitis; heart failure; neurologic reactions; hematologic and solid tumors malignancy including an increased risk of lymphoma and skin cancers; bone marrow toxicity including anemia, lymphopenia and immune suppression; hepatotoxicity and potential renal toxicity. Patients are actively assessed through routine laboratories (Q4 month or more frequently) which I personally review and are encouraged to contact us with any questions regarding new symptom development. Assessment & Plan (11/02/2018 2:48 PM CDT): High risk medications: As with all patients taking immunosuppressive biologic therapies or immunomodulators, we provide a balanced discussion on benefits and risks associated with these medications. Regarding potential risks, we employ a strategy of active monitoring for medication related toxicities. Toxicities and risks discussed in monitoring include, but are not limited to the following: infusion reactions including anaphylaxis; bacterial, viral and fungal infections; pancreatitis; heart failure; neurologic reactions; hematologic and solid tumors malignancy including an increased risk of lymphoma and skin cancers; bone marrow toxicity including anemia, lymphopenia and immune suppression; hepatotoxicity and potential renal toxicity. Patients are actively assessed through routine laboratories (Q4 month or more frequently) which I personally review and are encouraged to contact us with any questions regarding new symptom development. Assessment & Plan (07/29/2017 4:30 PM CDT): 1. Recheck safety labs today 2. Planned to recheck Remicade levels after she has had to properly timed infusion to verify that the dose is adequate 3. Given her high JENNA there was concern for a lupus-like reaction to Remicade however her symptoms seem to have resolved suggesting there was another factor causing this. We still would recommend that she follow with rheumatology and it appears she has an appointment later in the summer Acute postoperative pain Generalized abdominal pain Ureteral stricture, right Status post ureteral reimplantation Resolved Problems Problem Noted Date Diagnosed Date Resolved Date Crohn's disease ([facility]) 01/12/2020 Overview (01/12/2020): Added automatically from request for surgery [id number] Crohn's disease with complication 02/03/2019 05/19/2021 Overview (02/03/2019): Added automatically from request for surgery [id number] Right ureteral injury 07/28/20172018 Assessment & Plan (07/29/2017 4:28 PM CDT): Patient is to follow with Dr. Diaz and Jose Miguel for surgery an aftercare Once cleared by surgery she should schedule her Remicade Immunizations Immunization Administration Dates Next Due Hep B Vaccine 04/21/2017,12/30/2016,10/28/2016 Hep B, Adolescent or Pediatric 12/30/2016 Influenza, Quadrivalent, Yu l Culture-based MDCK, Preservative Free, Antibiotic Free, Intramuscular 11/29/2019,12/30/2016 Influenza, Trivalent, Preser vative Free, Intramuscular 11/23/2015 Pneumococcal Conjugate PCV 13 07/22/2016 Pneumococcal Polysaccharide PPV23 05/17/2021, Social History Tobacco Use Types Packs/Day Years Used Date Smoking Tobacco: Former Cigarettes 1 37 1 2016 Smokeless Tobacco: Never Alcohol Use Standard Drinks/Week Comments Yes 1 (1 standard drink = 0.6 oz pur e alcohol) once a week AUDIT-C Answer Date Recorded Q1: How often do you have a drink containing alc ohol? Monthly or less 08/31/2023 Q2: How many drinks containi ng alcohol do you have on a typical day when you are drinking? 1 or 2 08/31/2023 Q3: How often do you have si x or more drinks on one occasion? Never 08/31/2023 Personal Safety Answer Date Recorded Have you ever been in or are you currently in a harmful physical or emotional relationship or is someone making you feel afraid or unsafe? Denies 08/31/2023 Comments No Sex and Gender Information Value Date Recorded Sex Assigned at Not on file Legal Sex Female 7:27 AM COMBINER OPERATOR Gender Identity Female 02/16/2020 12:01 PM COMBINER OPERATOR Sexual Orientation Not on file Last Filed Vital Signs Vital Sign Reading Time Taken Comments Blood Pressure 133/79 04/15/2024 10:22 AM COMBINER OPERATOR Pulse 73 04/15/2024 10:22 AM COMBINER OPERATOR Temperature 36.7 C (98 F) 04/05/2024 12:57 PM COMBINER OPERATOR Respiratory Rate 16 04/15/2024 10:2 2 AM COMBINER OPERATOR Oxygen Saturation 97% 02/22/2024 10: 22 AM COMBINER OPERATOR Inhaled Oxygen Concentration - - Weight 132.9 kg (292 lb 14.4 oz) 2024 12:57 PM COMBINER OPERATOR Height 156.2 cm (5' 1.5 ) 04/05/2024 12 :57 PM COMBINER OPERATOR Body Mass Index 54.45 04/05/2024 12:57 PM COMBINER OPERATOR Plan of Treatment Not on file Medical Devices Explanted Type Area Cold Molding Press Operator Device Identifier Shelf Expiration Date Model / Serial / Lot Keduo [id number] Universa 7fr 20cm 145cm Soft Positioner Clinical Audiologist Braid Tether - [id number] - [id number] Implanted:Qty: 1 on 09/03/2017 by Justin Gillespie MD at [facility] Explanted:Qty: 1 on 10/07/2017 by Justin Gillespie MD Stent Right: Ureter [employer] 07/10/2020 [id number] / [id number] / Procedures Procedure Name Priority Date/Time Associated Diagnosis Comments PROTEIN / CREATININE RATIO, URINE, RANDOM Routine 04/05/2024 2:59 PM COMBINER OPERATOR Stage 3b chronic kidney disease (HCC) ALBUMIN CREATININE RATIO, URINE Routine 04/05/2024 2:59 PM COMBINER OPERATOR Stage 3b chronic kidney disease (HCC) POCT URINALYSIS DIPSTICK Routine 04/05/2024 1:07 PM COMBINER OPERATOR Stage 3b chronic kidney disease (HCC) CBC WITH AUTO DIFFERENTIAL Routine 02/22/2024 10:19 AM COMBINER OPERATOR Crohn's disease of large intestine without complication (HCC) COMPREHENSIVE METABOLIC PANEL Routine 02/22/2024 10:19 AM COMBINER OPERATOR Crohn's disease of large intestine without complication (HCC) VITAMIN D 25 HYDROXY Routine 02/22/2024 10:19 AM COMBINER OPERATOR Crohn's disease of large intestine without complication (HCC) CRP (ACUTE PHASE) Routine 02/22/2024 10:19 AM COMBINER OPERATOR Crohn's disease of large intestine without complication (HCC) PTH Routine 02/22/2024 10:19 AM COMBINER OPERATOR Stage 3b chronic kidney disease (HCC) Anemia in stage 3b chronic kidney disease (HCC) Renal osteodystrophy Primary hypertension Secondary hyperparathyroidism of renal origin Vitamin D deficiency COLONOSCOPY 08/31/2023 1:09 PM CDT from Last 3 Months or Most Recently Relevant to Health Maintenance Results * Protein / creatinine ratio, urine, random (04/05/2024 2:59 PM COMBINER OPERATOR) Protein, ur, quant 19.3 mg/dL Comment: Interpretive Data No reference range established. Current interpretive data was last revised 2018. Creatinine Ur 153.0 mg/dL [facility] Comment: Interpretive Data No reference range established. Current interpretive data was last revised 2018. Protein/creatinin e ratio 126.6 0.0 - 180.0 mg/g CR [facility] Urine 04/05/2024 2:59 PM COMBINER OPERATOR 04/05/2024 4:21 PM COMBINER OPERATOR Kirit Julio MD LAB URINE ORDERABLES Final Result Performing Organization Address [facility] de Phone Number [facility] Department [place] [address] * Albumin Creatinine Ratio, Urine (04/05/2024 2:59 PM COMBINER OPERATOR) Pathologist [facility] Albumin Ur <12.0 mg/L Comment: Interpretive Data No reference range established. Current interpretive data was last revised 2018. Creatinine Ur 153.0 mg/dL [facility] Comment: Interpretive Data No reference range established. Current interpretive data was last revised 2018. Albumin Creatinine Ratio, Ur <8 1 - 29 mg/g [facility] Urine 04/05/2024 2:59 PM COMBINER OPERATOR 04/05/2024 4:21 PM COMBINER OPERATOR Kirit Julio MD LAB URINE ORDERABLES Final Result [facility] Department [place] [address] * (ABNORMAL) POCT urinalysis dipstick (04/05/2024 1:07 PM COMBINER OPERATOR) Pathologist [facility] Glucose, ur, POC Negative Negative MG/DL Bilirubin, ur, POC Negative Negative, Small, Moderate, Large Ketones, ur, POC Negative Negative Specific [place], POC 1.020 1.003 - 1.030 Blood, ur, POC Negative Negative pH, ur, POC 6.0 5.0 - 8.0 Protein, ur, POC Trace(A) Negative Urobilinogen, urine, POC 0.2 0.2 - 1.0 mg/dL Nitrite, ur, POC Negative Negative Leukocytes, ur, POC Negative Negative Lot Number [id number] Urine 04/05/2024 1:07 PM COMBINER OPERATOR us Epifanio Orta MD POINT OF CARE TEST ORDERABLES Final Result * (ABNORMAL) CBC with auto differential (02/22/2024 10:19 AM COMBINER OPERATOR) Pathologist [facility] White Blood Count 5.9 3.6 - 11.2 K/uL [facility] RBC 4.33 3.63 - 4.92 M/uL [facility] Hemoglobin 13.6 11.9 - 15.5 g/dL [facility] Hematocrit 39.8 36.1 - 44.3 % [facility] MCV 92.0 80.0 - 97.6 fL [facility] MCH 31.4 26.7 - 33.7 pg [facility] MCHC 34.1 32.7 - 35.5 g/dL [facility] RBC Dist Width 13.2 12.3 - 17.0 % [facility] Platelet Count 257 140 - 440 K/uL [facility] MPV 7.1 6.8 - 10.4 fL [facility] Neutrophils % 47.3 38.7 - 74.5 % [facility] Lymphocyte % 32.0 20.0 - 54.3 % [facility] Monocytes % 9.7 4.3 - 13.5 % [facility] Eosinophils % 9.4(H) 0.0 - 6.0 % [facility] Basophil % 1.6 0.0 - 3.0 % [facility] Absolute Neutrophil 2.8 1.8 - 6.6 K/uL [facility] Absolute Lymphocyte 1.9 0.8 - 3.3 K/uL [facility] Absolute Monocyte 0.6 0.2 - 1.2 K/uL [facility] Absolute Eosinophil 0.6(H) 0.0 - 0.5 K/uL [facility] Absolute Basophil 0.1 0.0 - 0.2 K/uL [facility] Nucleated RBC % 0.1 0.0 - 0.4 /100 WBC [facility] Blood 02/22/2024 10:1 9 AM COMBINER OPERATOR 02/22/2024 11:17 AM COMBINER OPERATOR Maicol Bass MD LAB BLOOD ORDERABLES Final Re sult Performing Organization Address City/[facility] Co de Phone Number [facility] * Vitamin D 25 hydroxy (02/22/2024 10:19 AM COMBINER OPERATOR) Pathologist [facility] Vitamin D 36.4 20.0 - 100.0 ng/mL [facility] Comment: VITAMIN D DEFICIENCY = LESS THAN or EQUAL TO 20 ng/mL VITAMIN D INSUFFICIENCY = 21 - 29 ng/mL VITAMIN D SUFFICIENT = 30-100 ng/mL Blood 02/22/2024 10:1 9 AM COMBINER OPERATOR 02/22/2024 11:17 AM COMBINER OPERATOR Maicol Bass MD LAB BLOOD ORDERABLES Final Re sult Performing Organization Address City/[facility] Co de Phone Number [facility] * (ABNORMAL) CRP (acute phase) (02/22/2024 10:19 AM COMBINER OPERATOR) C-Reactive Protein, Acute 5.9(H) <5.0 mg/L [facility] Blood 02/22/2024 10:1 9 AM COMBINER OPERATOR 02/22/2024 11:17 AM COMBINER OPERATOR Maicol Bass MD LAB BLOOD ORDERABLES Final Re sult [facility] * (ABNORMAL) PTH (02/22/2024 10:19 AM COMBINER OPERATOR) Parathyroid Hormone 73.4(H) 15.0 - 65.0 pg/mL [facility] Blood 02/22/2024 10:1 9 AM COMBINER OPERATOR 02/22/2024 11:17 AM COMBINER OPERATOR Epifanio Orta MD LAB BLOOD ORDERABLES Final Res ult Performing Organization Address [facility] Co de Phone Number [facility] * Comprehensive metabolic panel (02/22/2024 10:19 AM COMBINER OPERATOR) Total Protein 7.4 6.1 - 8.4 g/dL [facility] Albumin 4.2 3.5 - 5.2 g/dL [facility] Calcium 9.2 8.6 - 10.3 mg/dL [facility] BUN 19 7 - 23 mg/dL [facility] Total Bilirubin 0.42 0.20 - 1.40 mg/dL [facility] Alk Phos, Total 78 35 - 129 IU/L [facility] AST (SGOT) INTERFERENCE - HEMOLYSIS 11 - 47 IU/L [facility] ALT (SGPT) 21 6 - 53 IU/L [facility] Creatinine 0.96 0.60 - 1.10 mg/dL [facility] Sodium 143 135 - 145 mmol/L [facility] Potassium INTERFERENCE - HEMOLYSIS 3.3 - 5.1 mmol/L [facility] Chloride 106 95 - 107 mmol/L [facility] CO2 Content 26 21 - 29 mmol/L [facility] Glucose 85 64 - 99 mg/dL [facility] Comment: NONFASTING GLUCOSE RANGE = 64-199 mg/dL FASTING GLUCOSE 64 - 99 = NORMAL FASTING GLUCOSE 100 - 125 = IMPAIRED FASTING GLUCOSE FASTING GLUCOSE >=126 = PROVISIONAL DIAGNOSIS OF DIABETES eGFR 65.3 >60.0 mL/min/1 .73 m2 [facility] Blood 02/22/2024 10:1 9 AM COMBINER OPERATOR 02/22/2024 11:17 AM COMBINER OPERATOR Narrative [facility] - 02/22/2024 11:58 AM COMBINER OPERATOR Specimen Hemolyzed us Maicol Bass MD LAB BLOOD ORDERABLES Final Re sult [facility] * Colonoscopy (08/31/2023 1:09 PM CDT) Anatomical Region Laterality Modality Other Narrative Procedure Note Maicol Bass MD - 08/31/2023 1:09 PM CDT ENDOSCOPY LAB Patient Name: Blanco De Los Santos Procedure Date: 08/31/2023 1:09 PM Date of : 1955 Admit Type: Outpatient Age: 68 Gender: Female Attending MD: Maicol Bass M.D. Room: [facility] ENDOSCOPY ROOM 02 Note Status: Finalized Procedure: Colonoscopy Indications: Disease activity assessment of Crohn's disease ofthe small bowel and colon Providers: Maicol Bass M.D. Referring MD: Benny Lopez D.O. Medicines: Monitored Anesthesia Care Complications: No immediate complications. Estimated blood loss:None. Estimated Blood Loss: Estimated blood loss: none. Procedure: Pre-Anesthesia Assessment: - Using IV propofol under the supervision of an anesthesiologist was determined to be medically necessary for this procedure based on review of the patient's medical history, medications, and prior anesthesia history. The benefits, risks and alternatives of theprocedure and sedation were discussed and informed consentwas obtained. All questions were answered. Please referto the signed informed consent document in the medical record. The scope was passed under direct vision.The [id number] was introduced through the anusand advanced to 10 cm into the ileum. The colonoscopywas performed without difficulty. The patient tolerated the procedure well. The quality of the bowel preparation was excellent. Bowel prep wasadministered using a single dose. Findings: The perianal and digital rectal examinations were normal. The Simple Endoscopic Score for Crohn's Disease was determined basedon the endoscopic appearance of the mucosa in the following segments: - Ileum: Findings include no ulcers present, no ulcerated surfaces,no affected surfaces and no narrowings. Segment score: 0. - Right Colon: Findings include no ulcers present, no ulcerated surfaces, no affected surfaces and no narrowings. Segment score: 0. - Transverse Colon: Findings include no ulcers present, no ulcerated surfaces, no affected surfaces and no narrowings. Segment score: 0. - Left Colon: Findings include no ulcers present, no ulceratedsurfaces, no affected surfaces and no narrowings. Segment score: 0. - Rectum: Findings include no ulcers present, no ulcerated surfaces,no affected surfaces and no narrowings. Segment score: 0. - Total SES-CD aggregate score: 0. Impression: - Simple Endoscopic Score for Crohn's Disease: 0, mucosal inflammatory changes secondary to Crohn's disease, in remission. - No specimens collected. Recommendation: - Continue present medications. - Return to my office in 6 weeks. Electronically signed by Maicol Bass MD Maicol Bass M.D. 08/31/2023 1:49:48 PM Number of Addenda: 0 Note Initiated On: 08/31/2023 1:09 PM Maicol Bass MD ENDOSCOPY PROCEDURES Edited R esult - Final from Last 3 Months or Most Recently Relevant to Health Maintenance Insurance MEDICARE [facility] MEDICARE SUPPLEMENT MEDICARE [facility] MEDICARE MEDICARE [facility] MEDICARE SUPPLEMENT Advance Directives For more information, please contact: [phone] * Full Code (Latest Code Status on File) Date Activated Date Inactivated Comments 08/31/2023 12:11 PM 08/31/2023 7:09 PM * Full Code Date Activated Date Inactivated Comments 05/30/2020 6:50 PM 05/31/2020 6:15 PM * Full Code Date Activated Date Inactivated Comments 05/03/2020 8:51 AM 05/03/2020 2:26 PM * Full Code Date Activated Date Inactivated Comments 09/03/2017 5:06 PM 09/05/2017 8:55 PM * Full Code Date Activated Date Inactivated Comments 07/22/2017 9:41 AM 07/22/2017 1:32 PM Care Teams Long Wall Mining Machine Tender Relationship Specialty Start Date End Date Benny Lopez DO [address] [place] [address] PCP - General Family Medicine 05/22/22 Gonsalo Diaz MD [address] [facility] [place] [id number] [place] [address] Surgeon Colon and Rectal Surgery 03/26/21 Maicol Bass MD [address] [place] [address] Business Analysis Analyst Gastroenterology 03/26/21 Marlene Smith NP [address] [place] [address] Nurse Practitioner 06/28/21
--- OUTSIDE RECORDS SUMMARY | 2024-04-25 15:27 | XMS_ITS | CONTINUITY OF CARE DOCUMENT ---
Author Name [email or web address] Address Unknown Organization [facility] Address [id number] [place] [address] [address] [place] [address] Phone [phone] Care Team Providers Care Allergist Name Role Phone Oseas RAPP, Olman Unavailable ISATU RAPP, THOMAS Unavailable [phone]
--- OUTSIDE RECORDS SUMMARY | 2024-04-25 15:27 | XMS_ITS ---
Author Organization [facility] Address [address] [place] [address] Care Team Providers Care Supervisor Loading Name Role Phone Gonsalo Diaz MD Unavailable [phone] Maicol Bass MD Unavailable [phone] Marlene Smith NP Unavailable [phone] Benny Lopez DO Primary Care Provider Active Problems Problem Noted Date Diagnosed Date [...] a schedule diet plan. 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 He should also have this skill to make lower calorie food appealing to her. She might find a lower carb or intermittent fasting diet tolerable but she needs to drink plenty of fluids given her single kidney. Renal cell carcinoma of left kidney 05/02/2020 Overview (05/02/2020): Added automatically from request for surgery [id number] History of elevated antinuclear antibody (JENNA) 0 04/06/2018 Crohn's disease of large int estine without complication (CMS/HCC) 07/28/2017 Overview (12/10/2021): Year of Diagnosis: 2013 [...] S/p colonic and small bowel resection in 2016. On remicade 7.5mg/kg every 6 weeks. Recent [...] Ureteral stricture, right Status post ureteral reimplantation Current Treatment and Therapy Plans No current plan information found. Other Current Plans infliximab (REMICADE) infusion loading and maintenance dose (GI)* Plan Start Date:01/10/2020 Plan Provider:Maicol Bass MD Linked Problems Crohn's disease of large int estine without complication ([facility]) Treatment Medications inFLIXimab (REMICADE) IVPB i n 250 mL Past Treatment and Therapy Plans No past plan information found. Lifetime Dose Tracking * Chemical Lifetime Dose Automatic Entry Manual Entr y Fluoro Time 4.3 minutes 4.3 minutes 0 minutes Air kerma at the reference point (Ka,r) 208.5 mGy 2 08.5 mGy 0 mGy DLP 7,665 mGycm 7,665 mGycm 0 mGycm Resolved Problems Problem Noted Date Diagnosed Date Resolved Date Crohn's disease ([facility]) 01/12/2020 Overview (01/12/2020): Added automatically from request for surgery [id number] Crohn's disease with complication 02/03/2019 05/19/2021 Overview (02/03/2019): Added automatically from request for surgery [id number] Right ureteral injury 07/28/20172018 Assessment & Plan (07/29/2017 4:28 PM CDT): Patient is to follow with Dr. Diaz and Jose Miguel for surgery an aftercare Once cleared by surgery she should schedule her Remicade
--- OUTSIDE RECORDS SUMMARY | 2024-04-25 15:27 | XMS_ITS | Clinical Summary ---
Author Organization [facility] Address [address] [place] [address] Care Team Providers Care Windows Systems Engineer Name Role Phone Unavailable Primary Care Provider Unavailabl e Social History Tobacco Use Types Packs/Day Years Used Date Smoking Tobacco: Never Assessed Comments Unknown Sex and Gender Information Value Date Recorded Sex Assigned at Not on file Legal Sex Female 7:37 PM CDT Gender Identity Not on file Sexual Orientation Not on file Last Filed Vital Signs Vital Sign Reading Time Taken Comments Blood Pressure 134/82 10/21/2011 1:17 PM CDT Pulse 82 10/21/2011 1:17 PM CDT Temperature - - Respiratory Rate - - Oxygen Saturation - - Inhaled Oxygen Concentration - - Weight 102.1 kg (225 lb) 10/21/2011 1:17 PM CDT Height 167.6 cm (5' 6 ) 10/21/2011 1:17 PM CDT Body Mass Index 36.32 10/21/2011 1:17 PM CDT Plan of Treatment Health Maintenance Due Date Last Done Comments Colorectal Cancer Screening Colonoscopy (10 Years) 1955 Hepatitis C 06/11/1975 DTaP, Tdap and Td Vaccines ( 1 - Tdap) 1976 Mammogram Screening 1997 Zoster Vaccines (1 of 2) 06/11/2007 Dexa Scan (General) 2022 Pneumococcal Vaccine: 65+ Ye ars (1 of 1 - PCV) 2022 COVID-19 Vaccine ( - 2023-2 5 season) 2023 Influenza Adult (#1) 2023 RSV Immunization or 60+ Years (1 - 1-dose 75+ series) 2032 Meningococcal B Vaccine Aged Out No l onger eligible based on patient's age to complete this topic Meningococcal Vaccine Aged Out No yolanda vik eligible based on patient's age to complete this topic RSV Immunizations Under 20 Months Aged Out No longer eligible based on patient's age to complete this topic
--- OUTSIDE RECORDS SUMMARY | 2024-04-25 15:28 | XMS_ITS | Clinical Summary ---
Author Organization [facility] Address [address] [place] [address] Care Team Providers Care Assistant Analyst Name Role Phone Gonsalo Diaz MD Unavailable [phone] Maicol Bass MD Unavailable [phone] Marlene Smith NP Unavailable Benny Lopez DO Primary Care Provider Allergies Active Allergy Reactions Criticality Noted Date Comments Nickel Rash Medium Medications cholecalciferol (VITAMIN D-3) 2,000 unit capsuleIndicati ons:Vitamin D Deficiency Take 1 capsule (2,000 Units total) by mouth certified procedural coder before breakfast Active docusate sodium (COLACE) 100 mg capsuleIndicati ons:constipatio n Take 1 capsule (100 mg total) by mouth every morning Active esomeprazole DR (NexIUM) 40 mg capsuleIndicati ons:Stress Ulcer Prophylaxis Take 20 mg by mouth certified procedural coder before breakfast. Active HYDROcodone-yolanda taminophen (NORCO) 10-325 [...] a schedule diet plan. 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 He should also have this skill to make lower calorie food appealing to her. She might find a lower carb or intermittent fasting diet tolerable but she needs to drink plenty of fluids given her single kidney. Renal cell carcinoma of left kidney 05/02/2020 Overview (05/02/2020): Added automatically from request for surgery [id number] History of elevated antinuclear antibody (JENNA) 0 04/06/2018 Crohn's disease of large int estine without complication ([facility]/H[facility]) 07/28/2017 Overview (12/10/2021): Year of Diagnosis: 2013 [...] Date Diagnosed Date Resolved Date Crohn's disease ([facility]) 01/12/2020 Overview (01/12/2020): Added automatically from request for surgery [id number] Crohn's disease with complication 02/03/2019 05/19/2021 Overview (02/03/2019): Added automatically from request for surgery [id number] Right ureteral injury 07/28/20172018 Assessment & Plan (07/29/2017 4:28 PM CDT): Patient is to follow with Dr. Diaz and Jose Miguel for surgery an aftercare Once cleared by surgery she should schedule her Remicade Encounters Date Type Department Care Team Description 04/15/2024 10:00 AM GLOBAL ACCOUNT MANAGER Infusion [facility] Infusion Therapy [address] [place] [address] Crohn's disease of large intestine without complication (HCC) (Primary Dx) 04/05/2024 2:59 PM GLOBAL ACCOUNT MANAGER - 04/05/2024 11:59 PM GLOBAL ACCOUNT MANAGER Hospital Encounter [address] [address] Stage 3b chronic kidney disease (HCC) Discharge Disposition: Discharge to home or self care 04/05/2024 1:00 PM GLOBAL ACCOUNT MANAGER Office Visit [facility] Nephrology [facility] [address] [place] [address] Stage 3b chronic kidney disease (HCC) (Primary Dx) 03/15/2024 Orders Only [facility] Urology [address] [facility] 11th [place] [address] Kristi Magana, ERICKSON 02/22/2024 1:00 PM GLOBAL ACCOUNT MANAGER Lab [facility] Endocrinology Metabolism and Lipid [address] [place] [address] Stage 3b chronic kidney disease (CKD) (HCC) [N18.32] (Primary Dx); Anemia in stage 3b chronic kidney disease (HCC) [N18.32, D63.1]; Renal osteodystrophy [N25.0]; Primary hypertension [I10]; Secondary hyperparathyroidism of renal origin (HCC) [N25.81]; Vitamin D deficiency [E55.9]; Crohn's disease of large intestine without complication (CMS/HCC) (HCC) [K50.10] 02/22/2024 10:00 AM GLOBAL ACCOUNT MANAGER Infusion [facility] Infusion Therapy [address] [facility] 5th [place] [address] Crohn's disease of large intestine without complication (HCC) (Primary Dx); Stage 3b chronic kidney disease (HCC); Anemia in stage 3b chronic kidney disease (HCC); Renal osteodystrophy; Primary hypertension; Secondary hyperparathyroidism of renal origin; Vitamin D deficiency from Last 3 Months Immunizations Immunization Administration Dates Next Due Hep B Vaccine 04/21/2017,12/30/2016,10/28/2016 Hep B, Adolescent or Pediatric 12/30/2016 Influenza, Quadrivalent, Yu l Culture-based MDCK, Preservative Free, Antibiotic Free, Intramuscular 11/29/2019,12/30/2016 Influenza, Trivalent, Preser vative Free, Intramuscular 11/23/2015 Pneumococcal Conjugate PCV 13 07/22/2016 Pneumococcal Polysaccharide PPV23 05/17/2021, Surgical History Surgery Date Site/Laterality Comments NEPHROSTOMY CATHETER CHANGE RIGHT 07/22/2017 Right 05/13/2017 NEPHROSTOMY W/ INTRODUCTION OF CATHETER 03/28/2017 Right COLONOSCOPY FLEXIBLE SIGMOIDOSCOPY TUBAL LIGATION 02/09/1981 - 02/08/1982 COLON SURGERY 02/10/2016 - 02/08/2017 colorectal surgery-colon stricture and fistula, abscess URETER SURGERY ABDOMINAL SURGERY ureter repair NEPHRECTOMY 02/10/2020 - 02/08/2021 Left Medical History Medical History Date Comments Crohn's disease (HCC) Hypertension Anemia 2/2 Chrohn's dis ease GERD (gastroesophageal reflux disease) H/O degenerative disc disease Former smoker UTI (urinary tract infection) x2 -3 Colonic fistula Colon stricture (HCC) Rivero's palsy 1987 TIA (transient ischemic attack) Colon polyp Chronic kidney disease kidney ma ss Cardiac complication TIA 2013 Cancer (HCC) renal cell History of transfusion Stroke (HCC) Chronic constipation Chronic diarrhea Diverticulosis Family History Medical History Relation Name Comments Hypertension Brother Family history of hypertension - (Added by TW Conv) Deep vein thrombosis Father Hypertension Father Family history of hypertension - (Added by TW Conv) Colon cancer Mother Colon cancer - (Added by TW Conv) Hypertension Mother Family history of hypertension - (Added by TW Conv) Hypertension Sister Family history of hypertension - (Added by TW Conv) Anesthesia problems Neg Hx Relation Name Status Comments Brother Father Mother Sister Social History Tobacco Use Types Packs/Day Years Used Date Smoking Tobacco: Former Cigarettes 1 37 1 980 - 2016 Smokeless Tobacco: Never Alcohol Use Standard [...] on file Legal Sex Female 7:27 AM GLOBAL ACCOUNT MANAGER Gender Identity Female 02/16/2020 12:01 PM GLOBAL ACCOUNT MANAGER Sexual Orientation Not on file Obstetrics History Last Filed Vital Signs Vital Sign Reading Time Taken Comments Blood Pressure 133/79 04/15/2024 10:22 AM GLOBAL ACCOUNT MANAGER Pulse 73 04/15/2024 10:22 AM GLOBAL ACCOUNT MANAGER Temperature 36.7 C (98 F) 04/05/2024 12:57 PM GLOBAL ACCOUNT MANAGER Respiratory Rate 16 04/15/2024 10:2 2 AM GLOBAL ACCOUNT MANAGER Oxygen Saturation 97% 02/22/2024 10: 22 AM GLOBAL ACCOUNT MANAGER Inhaled Oxygen Concentration - - Weight 132.9 kg (292 lb 14.4 oz) 2024 12:57 PM GLOBAL ACCOUNT MANAGER Height 156.2 cm (5' 1.5 ) 04/05/2024 12 :57 PM GLOBAL ACCOUNT MANAGER Body Mass Index 54.45 04/05/2024 12:57 PM GLOBAL ACCOUNT MANAGER Plan of Treatment Health Maintenance Due Date Last Done Comments Breast Cancer Screening-Mammogram 1955 Depression Screening 1955 Hepatitis C Screening 1955 Osteoporosis Screening-Bone Density Scan 1955 DTaP/Tdap/Td Vaccine (1 - Tdap) 1968 Zoster Vaccine (1 of 2) 1976 Lung Cancer Screening 06/11/2007 Well Visit 65+ 2022 Fall Risk Assessment 08/30/2024 08/31/2023 Pneumococcal vaccine 65+ (4 of 4 - PCV20 or PCV21) 05/17/2026 05/17/2021, 07/22/2016, 03/06/2015 Colon Cancer Screening-Colonoscopy 08/30/2033 08/31/2023, 05/03/2020, 03/20/2017, Additional history exists Hepatitis B Screening Completed 04/21/2017 , 12/30/2016, 12/30/2016, Additional history exists Colon Cancer Screening-CT Colonography Discontinued 08/31/2023, 05/03/2020, 03/20/2017, Additional history exists Colon Cancer Screening-DNA Stool Discontinued 08/31/2023, 05/03/2020, 03/20/2017, Additional history exists Colon Cancer Screening-FIT Discontinued 08/30, 05/03/2020, 03/20/2017, Additional history exists Colon Cancer Screening-Sigmoidoscopy Discontinued 08/31/2023, 05/03/2020, 03/20/2017, Additional history exists Influenza Vaccine Completed 12/24/2023, , 11/29/2019, Additional history exists Medical Devices Explanted Type Area Geothermal Sheet Metal Worker Device Identifier Shelf Expiration Date Model / Serial / Lot [employer] [id number] Universa 7fr 20cm 145cm Soft Positioner Ticket Dispatcher Braid Tether - [id number] - [id number] Implanted:Qty: 1 on 09/03/2017 by Justin Gillespie MD at [facility] Explanted:Qty: 1 on 10/07/2017 by Justin Gillespie MD Stent Right: Ureter [employer] 07/10/2020 [id number] / [id number] / Procedures Procedure Name Priority Date/Time Associated Diagnosis Comments PROTEIN / CREATININE RATIO, URINE, RANDOM Routine 04/05/2024 2:59 PM GLOBAL ACCOUNT MANAGER Stage 3b chronic kidney disease (HCC) ALBUMIN CREATININE RATIO, URINE Routine 04/05/2024 2:59 PM GLOBAL ACCOUNT MANAGER Stage 3b chronic kidney disease (HCC) POCT URINALYSIS DIPSTICK Routine 04/05/2024 1:07 PM GLOBAL ACCOUNT MANAGER Stage 3b chronic kidney disease (HCC) CBC WITH AUTO DIFFERENTIAL Routine 02/22/2024 10:19 AM GLOBAL ACCOUNT MANAGER Crohn's disease of large intestine without complication (HCC) COMPREHENSIVE METABOLIC PANEL Routine 02/22/2024 10:19 AM GLOBAL ACCOUNT MANAGER Crohn's disease of large intestine without complication (HCC) VITAMIN D 25 HYDROXY Routine 02/22/2024 10:19 AM GLOBAL ACCOUNT MANAGER Crohn's disease of large intestine without complication (HCC) CRP (ACUTE PHASE) Routine 02/22/2024 10:19 AM GLOBAL ACCOUNT MANAGER Crohn's disease of large intestine without complication (HCC) PTH Routine 02/22/2024 10:19 AM GLOBAL ACCOUNT MANAGER Stage 3b chronic kidney disease (HCC) Anemia in stage 3b chronic kidney disease (HCC) Renal osteodystrophy Primary hypertension Secondary hyperparathyroidism of renal origin Vitamin D deficiency COLONOSCOPY 08/31/2023 1:09 PM CDT from Last 3 Months or Most Recently Relevant to Health Maintenance Results * Protein / creatinine ratio, urine, random (04/05/2024 2:59 PM GLOBAL ACCOUNT MANAGER) Protein, ur, quant 19.3 mg/dL Comment: Interpretive Data No reference range established. Current interpretive data was last revised 2018. Creatinine Ur 153.0 mg/dL [facility] Comment: Interpretive Data No reference range established. Current interpretive data was last revised 2018. Protein/creatinin e ratio 126.6 0.0 - 180.0 mg/g [facility] Urine 04/05/2024 2:59 PM GLOBAL ACCOUNT MANAGER 04/05/2024 4:21 PM GLOBAL ACCOUNT MANAGER us Kirit Julio MD LAB URINE ORDERABLES Final Result [facility] [address] [facility] Department [place] [address] * Albumin Creatinine Ratio, Urine (04/05/2024 2:59 PM GLOBAL ACCOUNT MANAGER) Albumin Ur <12.0 mg/L Comment: Interpretive Data No reference range established. Current interpretive data was last revised 2018. Creatinine Ur 153.0 mg/dL [facility] Comment: Interpretive Data No reference range established. Current interpretive data was last revised 2018. Albumin Creatinine Ratio, Ur <8 1 - 29 mg/g [facility] Urine 04/05/2024 2:59 PM GLOBAL ACCOUNT MANAGER 04/05/2024 4:21 PM GLOBAL ACCOUNT MANAGER us Kirit Julio MD LAB URINE ORDERABLES Final Result [facility] [address] [facility] [place] [address] * (ABNORMAL) POCT urinalysis dipstick (04/05/2024 1:07 PM GLOBAL ACCOUNT MANAGER) Glucose, ur, POC Negative Negative MG/DL Bilirubin, ur, POC Negative Negative, Small, Moderate, Large Ketones, ur, POC Negative Negative Specific [place], POC 1.020 1.003 - 1.030 Blood, ur, POC Negative Negative pH, ur, POC 6.0 5.0 - 8.0 Protein, ur, POC Trace(A) Negative Urobilinogen, urine, POC 0.2 0.2 - 1.0 mg/dL Nitrite, ur, POC Negative Negative Leukocytes, ur, POC Negative Negative Lot Number [id number] Urine 04/05/2024 1:07 PM GLOBAL ACCOUNT MANAGER us Epifanio Orta MD POINT OF CARE TEST ORDERABLES Final Result * (ABNORMAL) CBC with auto differential (02/22/2024 10:19 AM GLOBAL ACCOUNT MANAGER) White Blood Count 5.9 3.6 - 11.2 [...] - [facility] Blood 02/22/2024 10:1 9 AM GLOBAL ACCOUNT MANAGER 02/22/2024 11:17 AM GLOBAL ACCOUNT MANAGER us Maicol Bass MD LAB BLOOD ORDERABLES Final Re sult [facility] * Vitamin D 25 hydroxy (02/22/2024 10:19 AM GLOBAL ACCOUNT MANAGER) Pathologist [facility] Vitamin D 36.4 20.0 - 100.0 ng/mL [facility] Comment: VITAMIN D DEFICIENCY = LESS THAN or EQUAL TO 20 ng/mL VITAMIN D INSUFFICIENCY = 21 - 29 ng/mL VITAMIN D SUFFICIENT = 30-100 ng/mL Blood 02/22/2024 10:1 9 AM GLOBAL ACCOUNT MANAGER 02/22/2024 11:17 AM GLOBAL ACCOUNT MANAGER Maicol Bass MD LAB BLOOD ORDERABLES Final Re sult Performing Organization Address [facility] Co de Phone Number [facility] * (ABNORMAL) CRP (acute phase) (02/22/2024 10:19 AM GLOBAL ACCOUNT MANAGER) C-Reactive Protein, Acute 5.9(H) <5.0 mg/L [facility] Blood 02/22/2024 10:1 9 AM GLOBAL ACCOUNT MANAGER 02/22/2024 11:17 AM GLOBAL ACCOUNT MANAGER Maicol Bass MD LAB BLOOD ORDERABLES Final Re sult Performing Organization Address [facility] Co de Phone Number [facility] * (ABNORMAL) PTH (02/22/2024 10:19 AM GLOBAL ACCOUNT MANAGER) Parathyroid Hormone 73.4(H) 15.0 - 65.0 pg/mL [facility] Blood 02/22/2024 10:1 9 AM GLOBAL ACCOUNT MANAGER 02/22/2024 11:17 AM GLOBAL ACCOUNT MANAGER Epifanio Orta MD LAB BLOOD ORDERABLES Final Res ult Performing Organization Address [facility] Co de Phone Number [facility] * Comprehensive metabolic panel (02/22/2024 10:19 AM GLOBAL ACCOUNT MANAGER) Total Protein 7.4 6.1 - 8.4 g/dL [...] - [facility] Blood 02/22/2024 10:1 9 AM GLOBAL ACCOUNT MANAGER 02/22/2024 11:17 AM GLOBAL ACCOUNT MANAGER Narrative [facility] CORE [facility] - 02/22/2024 11:58 AM GLOBAL ACCOUNT MANAGER Specimen Hemolyzed Maicol Bass MD LAB BLOOD ORDERABLES Final Re sult [facility] * Colonoscopy (08/31/2023 1:09 PM CDT) Anatomical Region Laterality Modality Other Narrative Procedure Note Maicol Bass MD - 08/31/2023 1:09 PM CDT ENDOSCOPY LAB Patient Name: Hector De Los Santos Procedure Date: 08/31/2023 1:09 PM Date of : 1955 Admit Type: Outpatient Age: 68 Gender: Female Attending MD: Maicol Bass M.D. Room: [facility] ENDOSCOPY ROOM 02 Note Status: Finalized Procedure: [...] The scope was passed under direct vision.The [id number] was introduced through the anusand advanced to [...] Recently Relevant to Health Maintenance Insurance MEDICARE [facility] MEDICARE SUPPLEMENT MEDICARE [facility] MEDICARE MEDICARE [facility] MEDICARE SUPPLEMENT Advance Directives For more information, please contact: [phone] * Full Code (Latest Code Status on [...] 9:41 AM 07/22/2017 1:32 PM Care Teams Assistant Analyst Relationship Specialty Start Date End Date Jessica Bennyjeancarlos Pacheco DO [address] [place] [address] PCP - General Family Medicine 05/22/22 Gonsalo Diaz MD [address] [facility] [phone] [place] [address] Surgeon Colon and Rectal Surgery 03/26/21 Maicol Bass MD [address] [place] [address] Pillow Cleaner Gastroenterology 03/26/21 Marlene Smith NP [address] [place] [address] Nurse Practitioner 06/28/21
== END 2024-04-25 13:02 | disposition home or self-care (01) ==
PROVIDERS: PCP Nurse Practitioner Family; Visit Provider Nurse Practitioner Family
DX: H90.3 Sensorineural hearing loss, bilateral (principal)
CPT/HCPCS: 92557; 92567

== ENCOUNTER 2024-09-29 13:46 | Outpatient (CLI) | payer MEDICARE, SELFPAY ==
--- OUTSIDE RECORDS SUMMARY | 2024-09-29 14:00 | XMS_ITS | Clinical Summary ---
Author Organization [facility] Address [address] [place] [address] Care Team Providers Care Buckle Attaching Machine Operator Name Role Phone Unavailable Primary Care Provider [...] 1:17 PM CDT Height 167.6 cm (5' 6) 10/21/2011 1:17 PM CDT Body Mass Index 36.32 10/21/2011 1:17 PM CDT Plan of Treatment Health Maintenance Due Date Last Done Comments Colorectal Cancer Screening Colonoscopy (10 Years) 1955 Hepatitis C 06/11/1975 DTaP, Tdap and Td Vaccines ( 1 - Tdap) 1976 Mammogram Screening 1997 Pneumococcal Vaccine: 50+ Ye ars (1 of 1 - PCV) 06/11/2007 Zoster Vaccines (1 of 2) 06/11/2007 Dexa Scan (General) 2022 COVID-19 Vaccine ( - 2023-2 5 season) 2023 RSV Immunization or 60+ Years (1 [...]
--- OUTSIDE RECORDS SUMMARY | 2024-09-29 14:00 | XMS_ITS | Encounter Summary ---
Author Organization [facility] Address [address] [place] [address] Phone Care Team Providers Care Brass Sorter Name Role Phone Gonsalo Diaz MD Unavailable [phone] Maicol Bass MD Unavailable Marlene Smith NP Unavailable Benny Lopez DO Primary Care Provider Encounter Details Date Type Department Care Team (Latest Contact Info) Description 11/03/2023 Orders Only [facility] Medicine Nephrology [address] [facility] Advanced Medicine 5th [place] [address] [place] [id number] Epifanio Orta MD [address] [facility] [address] [place] [address] Stage 3b chronic kidney disease (HCC) (Primary Dx); Anemia in stage 3b chronic kidney disease (HCC); Renal osteodystrophy; Primary hypertension; Secondary hyperparathyroidism of renal origin; Vitamin D deficiency Social History Tobacco Use Types Packs/Day Years [...] more drinks on one occasion? Never 08/31/2023 Hunger Vital Sign Answer Date Recorded Within the past 12 months, y ou worried that your food would run out before you got the money to buy more. Never true 09/24/19 25 Within the past 12 months, t he food you bought just didn't last and you didn't have money to get more. Never true 09/23/2024 Personal Safety Answer Date Recorded Have you ever been in or are you currently in a harmful physical or emotional relationship or is someone making you feel afraid or unsafe? Denies 09/23/2024 Comments No Sex and Gender Information Value Date Recorded Sex Assigned at Not on file Legal Sex Female 7:27 AM WRIST HEMMER Gender Identity Female 02/16/2020 12:01 PM WRIST HEMMER Sexual Orientation Not on file documented as of this encounter Miscellaneous Notes * Addendum Note - Allison Toth RN - 11/03/2023 9:54 AM CDTAddended by: ALLISON TOTH on: 02/22/2024 10:01 AM Modules accepted: Orders T HEMMER * Addendum Note - Allison Toth RN - 11/03/2023 9:54 AM CDTAddended by: ALLISON TOTH on: 02/22/2024 10:01 AM Modules accepted: Orders T HEMMER * Addendum Note - Allison Toth RN - 11/03/2023 9:54 AM CDTAddended by: ALLISON TOTH on: 02/22/2024 10:01 AM Modules accepted: Orders T HEMMER * Addendum Note - Allison Toth RN - 11/03/2023 9:54 AM CDTAddended by: ALLISON TOTH on: 02/22/2024 10:01 AM Modules accepted: Orders T HEMMER * Addendum Note - Abhishek Murrell - 11/03/2023 9:54 AM CDTAddended by: ABHISHEK MURRELL on: 09/28/2024 09:47 AM Modules accepted: Orders documented in this encounter Plan of Treatment Scheduled Orders Name Type Priority Associated Diagnoses Orde r Schedule Basic metabolic panel Lab Routine Stage 3b chronic kidney disease (HCC) Anemia in stage 3b chronic kidney disease (HCC) Renal osteodystrophy Primary hypertension Secondary hyperparathyroidism of renal origin Vitamin D deficiency Expected: 09/28/2024, Expires: 11/02/2024 CBC with auto differential Lab Routine Stage 3b chronic kidney disease (HCC) Anemia in stage 3b chronic kidney disease (HCC) Renal osteodystrophy Primary hypertension Secondary hyperparathyroidism of renal origin Vitamin D deficiency Expected: 09/28/2024, Expires: 11/02/2024 Vitamin D 25 hydroxy Lab Routine Stage 3b chronic kidney disease (HCC) Anemia in stage 3b chronic kidney disease (HCC) Renal osteodystrophy Primary hypertension Secondary hyperparathyroidism of renal origin Vitamin D deficiency Expected: 09/28/2024, Expires: 11/02/2024 documented as of this encounter Results * (ABNORMAL) PTH (02/22/2024 10:19 AM WRIST HEMMER) Parathyroid Hormone 73.4(H) 15.0 - 65.0 pg/mL [facility] Blood 02/22/2024 10:1 9 AM WRIST HEMMER 02/22/2024 11:17 AM WRIST HEMMER us Epifanio Orta MD LAB BLOOD ORDERABLES Final Res ult [facility] documented in this encounter Visit Diagnoses Diagnosis Stage 3b chronic kidney disease (HCC)- Primary Anemia in stage 3b chronic kidney disease (HCC) Renal osteodystrophy Primary hypertension Unspecified essential hypertension Secondary hyperparathyroidism of renal origin Secondary hyperparathyroidism (of renal origin) Vitamin D deficiency documented in this encounter Care Teams Brass Sorter Relationship Specialty Start Date End Date Benny Lopez DO [address] [place] [address] PCP - General Family Medicine 05/22/22 Gonsalo Diaz MD [address] [facility] [phone] [place] [address] Surgeon Colon and Rectal Surgery 03/26/21 Maicol Bass MD [address] [place] [address] Microbiology Coordinator Gastroenterology 03/26/21 Marlene Smith NP [address] [place] [address] Nurse Practitioner 06/28/21 documented as of this encounter
--- OUTSIDE RECORDS SUMMARY | 2024-09-29 14:00 | XMS_ITS ---
Author Organization [facility] Address [address] [place] [address] Care Team Providers Care Family Lawyer Name Role Phone Gonsalo Diaz MD Unavailable [phone] Maicol Bass MD Unavailable [phone] Marlene Smith NP Unavailable Benny Lopez DO Primary Care Provider Active [...] a schedule diet plan. 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 He should also have this skill to make lower calorie food appealing to her. She might find a lower carb or intermittent fasting diet tolerable but she needs to drink plenty of fluids given her single kidney. Renal cell carcinoma of left kidney 05/02/2020 Overview (05/02/2020): Added automatically from request for surgery [id number] History of elevated antinuclear antibody (JENNA) 0 [...] disease of large int estine without complication ([facility]) Treatment Medications inFLIXimab (REMICADE) IVPB i n [...] Date Diagnosed Date Resolved Date Crohn's disease ([facility]) 01/12/2020 Overview (01/12/2020): Added automatically from request for surgery [id number] Crohn's disease with complication 02/03/2019 05/19/2021 Overview (02/03/2019): Added automatically from request for surgery [id number] Right ureteral injury 07/28/20172018 Assessment & Plan (07/29/2017 4:28 PM CDT): Patient is to follow with Dr. Diaz and Jose Miguel for surgery an aftercare Once cleared by surgery she should schedule her Remicade
--- OUTSIDE RECORDS SUMMARY | 2024-09-29 14:00 | XMS_ITS | Clinical Summary ---
Author Organization [facility] Address [address] [place] [address] Care Team Providers Care Manager Home Improvement Name Role Phone Gonsalo Diaz MD Unavailable [phone] Maicol Bass MD Unavailable [phone] Marlene Smith NP Unavailable Benny Lopez DO Primary Care Provider Allergies Active Allergy Reactions Criticality Noted Date Comments Nickel Rash Medium Medications cholecalciferol (VITAMIN D-3) 2,000 unit capsuleIndicatio ns:Vitamin D Deficiency Take 1 capsule (2,000 Units total) by mouth web engineer before breakfast Active docusate sodium (COLACE) 100 mg capsuleIndicatio ns:constipation Take 1 capsule (100 mg total) by mouth every morning Active esomeprazole DR (NexIUM) 40 mg capsuleIndicatio ns:Stress Ulcer Prophylaxis Take 20 mg by mouth web engineer before breakfast. Active HYDROcodone-acet aminophen (NORCO) 10-325 mg per tabletIndication s:Pain Take 1 tablet by mouth every 4 (four) hours as needed for pain. 30 tablet 8 Active SOLU-MEDROL, PF, 40 mg/mL recon solnIndications: crohns Infuse 1 mL (40 mg total) into a venous catheter With the remicade 11 8 Active diphenhydrAMINE (BENADRYL) 50 mg/mL injectionIndicat ions:PRE MED 30 MINUTES PRIOR TO REMICADE Infuse 0.5 mL (25 mg total) into a venous catheter Active aspirin 81 mg enteric coated tabletIndication s:prevention of thrombosis Take 1 tablet (81 mg total) by mouth every morning Active fluticasone propionate (FLONASE) 50 mcg/actuation nasal sprayIndications :Allergic Rhinitis Administer 2 sprays into each nostril every morning 1 Active acetaminophen (TYLENOL) 325 mg tablet Take 2 tablets (650 mg total) by mouth as needed for pain or headaches Active inFLIXimab (REMICADE) 100 mg injectionIndicat ions:Crohn's Disease Infuse 10 mL (100 mg total) [...] with meals Active cephalexin (KEFLEX) 500 mg capsuleIndicatio ns:Urinary Tract/Genitourin linh Infection Take 1 capsule (500 mg total) by mouth nightly 90 capsule 3 4 Active losartan (COZAAR) 50 mg tablet 5 Active semaglutide (OZEMPIC) 0.25 mg or 0.5 mg (2 mg/3 mL) pen injector injectionIndicat ions:Weight Loss Management for Obese Patient (BMI >= 30) Inject 0.5 mg under the skin once a week Active montelukast (SINGULAIR) 4 mg chewable tabletIndication s:Seasonal Allergic Rhinitis Take 1 tablet (4 mg total) by mouth nightly Active Active Problems Problem Noted Date Diagnosed Date [...] a schedule diet plan. 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 He should also have this skill to make lower calorie food appealing to her. She might find a lower carb or intermittent fasting diet tolerable but she needs to drink plenty of fluids given her single kidney. Renal cell carcinoma of left kidney 05/02/2020 Overview (05/02/2020): Added automatically from request for surgery [id number] History of elevated antinuclear antibody (JENNA) 0 04/06/2018 Crohn's disease of large int estine without complication ([facility]/HCC) 07/28/2017 Overview (12/10/2021): Year of Diagnosis: 2013 [...] Date Diagnosed Date Resolved Date Crohn's disease (CMS/HCC) 01/12/2020 Overview (01/12/2020): Added automatically from request for surgery [id number] Crohn's disease with complication 02/03/2019 05/19/2021 Overview (02/03/2019): Added automatically from request for surgery [id number] Right ureteral injury 07/28/20172018 Assessment & Plan (07/29/2017 4:28 PM CDT): Patient is to follow with Dr. Dugan for surgery an aftercare Once cleared by surgery she should schedule her Remicade Encounters Date Type Department Care Team Description 09/26/2024 Telephone [facility] Medicine Gastroenterology [facility] [address] [place] [address] [place] [address] Bria Kapoor, GUTIERREZ 09/23/2024 10:00 AM CDT Infusion [facility] [address] [place] [address] [address] [place] [address] Crohn's disease of large intestine without complication (HCC) (Primary Dx) 09/23/2024 Orders Only [facility] Medicine Gastroenterology [address] [facility] [address] [place] [address] [place] [address] Maicol Bass MD 08/30/2024 9:15 AM CDT Office Visit [facility] Medicine Gastroenterology [address] [facility] [address] [place] [address] [place] [address] Maicol Bass MD High risk medications (not anticoagulants) long-term use (Primary Dx); Crohn's disease of large intestine without complication (CMS/HCC) (HCC); Renal cell carcinoma of left kidney (HCC) 08/30/2024 Documentation [facility] Medicine Gastroenterology [address] [facility] [address] [place] [address] [place] [address] Aye Armendariz, RN Treatment Plan Update (08/30/2024 rov) 08/02/2024 10:00 AM CDT Infusion [facility] Medicine Infusion Therapy [address] [facility] 5th [place] [address] [place] [address] Crohn's disease of large intestine without complication (HCC) (Primary Dx) from Last 3 Months Immunizations Immunization Administration [...] on file Legal Sex Female 7:27 AM QA TEST ANALYST Gender Identity Female 02/16/2020 12:01 PM QA TEST ANALYST Sexual Orientation Not on file Obstetrics History Last Filed Vital Signs Vital Sign Reading Time Taken Comments Blood Pressure 134/74 09/23/2024 12:00 PM CDT Pulse 70 09/23/2024 12:00 PM CDT Temperature 36.3 C (97.4 F) 09/23/2024 10:05 AM CDT Respiratory Rate 14 09/23/2024 12:00 PM CDT Oxygen Saturation 93% 09/23/2024 12:00 PM CDT Inhaled Oxygen Concentration - - Weight 119.7 kg (264 lb) 09/23/2024 10:05 AM CDT Height 160 cm (5' 3) 09/23/2024 10:05 AM CDT Body Mass Index 46.77 09/23/2024 10:05 AM CDT Plan of Treatment Health Maintenance Due Date Last Done Comments Breast Cancer Screening-Mammogram 1955 Depression Screening 1955 Hepatitis C Screening 1955 Osteoporosis Screening-Bone Density Scan 1955 DTaP/Tdap/Td Vaccine (1 - Tdap) 1968 Zoster Vaccine (1 of 2) 1976 Lung Cancer Screening 06/11/2007 Well Visit 65+ 2022 Fall Risk Assessment 08/30/2024 08/31/2023 Influenza Vaccine (#1) 2024 , 11/10/2022, 11/29/2019, Additional history exists Pneumococcal vaccine 65+ (4 of 4 - [...] Discontinued 08/31/2023, 05/03/2020, 03/20/2017, Additional history exists Medical Devices Explanted Type Area Newspaper Peddler Device Identifier Shelf Expiration Date Model / Serial / Lot [employer] [id number] Universa 7fr 20cm 145cm Soft Positioner Analytical Data Scientist Braid Tether - [id number] - [id number] Implanted:Qty: 1 on 09/03/2017 by Justin Gillespie MD at [facility] Explanted:Qty: 1 on 10/07/2017 by Justin Gillespie MD Stent Right: [employer] 07/10/2020 [id number] / [id number] / Procedures Procedure Name Priority Date/Time Associated Diagnosis Comments COLONOSCOPY 08/31/2023 1:09 PM CDT from Last 3 Months or Most Recently Relevant to Health Maintenance Results * Colonoscopy (08/31/2023 1:09 PM CDT) Anatomical Region Laterality Modality Other Narrative Procedure Note Maicol Bass MD - 08/31/2023 1:09 PM CDT ENDOSCOPY LAB Patient Name: Hector De Los Santos Procedure Date: 08/31/2023 1:09 PM Date of : 1955 Admit Type: Outpatient Age: 68 Gender: Female Attending MD: Maicol Bass M.D. Room: [facility] ENDOSCOPY ROOM 02 Note Status: Finalized Procedure: Colonoscopy Indications: Disease activity assessment of Crohn's disease ofthe small bowel and colon Providers: Miacol Bass M.D. Referring MD: Benny Lopez D.O. [...] The scope was passed under direct vision.The [id number] was introduced through the anusand advanced to [...] Recently Relevant to Health Maintenance Insurance MEDICARE [facility] MEDICARE SUPPLEMENT MEDICARE [facility] [id number] [place] [address] [place] [address] [facility] MEDICARE SUPPLEMENT Advance Directives For more information, please contact: [phone] * Full Code (Latest Code Status on [...] 9:41 AM 07/22/2017 1:32 PM Care Teams Manager Home Improvement Relationship Specialty Start Date End Date Benny Lopez DO [address] [place] [address] PCP - General Family Medicine 05/22/22 Gonsalo Diaz MD [address] [facility] [phone] [place] [address] Surgeon Colon and Rectal Surgery 03/26/21 Maicol aBss MD [address] [place] [address] Web Software Engineer Gastroenterology 03/26/21 Marlene Smith NP [address] [place] [id number] Nurse Practitioner 06/28/21
[2024-09-29 14:04] LABS: Hematocrit 42.6 % (35.0-42.0); Hemoglobin 14.1 g/dL (11.7-13.8); Immature Granulocyte Percent A 0.3 % (0.0-0.0); Lymphocytes Absolute Auto 2.17 K/mm3 (1.10-4.50); Mean Corpuscular HGB Conc 33.1 g/dL (32-36); Mean Corpuscular Hemoglobin 31.1 pg (27.0-31.0); Mean Corpuscular Volume 93.8 fL (78.0-102.0); Nucleated Red Blood Cells Absolute Auto 0.07 K/mm3 (0.00-0.00); Nucleated Red Blood Cells Perc 1.0 % (0-0.0); Platelet Count Result 283 K/mm3 (150-420); Red Blood Count 4.54 M/mm3 (4.20-5.40); White Blood Count 6.7 K/mm3 (4.8-10.8)
[2024-09-29 15:40] LABS: Anion Gap 8 mmol/L (4-12); Blood Urea Nitrogen 16 mg/dL (7-17); Calcium 10.0 mg/dL (8.4-10.2); Carbon Dioxide 27 mmol/L (22-30); Chloride 105 mmol/L (98-107); Estimated Glomerular Filt Rate 49; Glucose 85 mg/dL (65-110); Osmolality Calculated 290 mOsm/kg (285-295); Sodium 140 mmol/L (137-145)
[2024-09-29 15:45] LABS: Potassium 4.8 mmol/L (3.4-5.0)
== END 2024-09-29 13:47 | disposition home or self-care (01) ==
PROVIDERS: PCP Nurse Practitioner Family
DX: N18.32 Chronic kidney disease, stage 3b (principal); D63.1 Anemia in chronic kidney disease; N25.0 Renal osteodystrophy; N25.81 Secondary hyperparathyroidism of renal origin; E55.9 Vitamin D deficiency, unspecified; I12.9 Hypertensive chronic kidney disease with stage 1 through stage 4 chronic kidney disease, or unspecified chronic kidney disease
CPT/HCPCS: 36415; 80048; 82306; 85025